=== PATIENT | male | born 1945 | race African-American/Black ===

== ENCOUNTER → 2017-06-06 | Outpatient (CLI) | payer MEDICARE, MEDICAID ==
[2017-06-06 16:26] LABS: BASO % 0.7 % (0.0-2.0); EOS # 0.2 (0.0-0.7); EOS % 3.8 % (0-4.0); GRAN # 2.7 (1.4-6.5); GRAN % 64.2 % (42.2-75.2); HEMATOCRIT 40.1 % (42.0-52.0); HEMOGLOBIN 12.8 g/dl (13.5-18.0); LYMPH % 23.6 % (20.0-51.0); MEAN CELL VOLUME 95 fl (80.0-100.0); MEAN CORPUSCULAR HEMOGLOBIN 30 pg (27.0-31.0); MEAN CORPUSCULAR HGB CONC 32 g/dl (33.0-37.0); MEAN PLATELET VOLUME 10.7 fl (7.4-10.4); MONO # 0.3 (0.1-0.6); MONO % 7.5 % (1.7-9.3); PLATELET COUNT 225 K/mm3 (130-400); RED BLOOD COUNT 4.24 M/mm3 (4.20-5.60); REDCELL DISTRIBUTION WIDTH-CV 14.1 % (11.5-14.5)
[2017-06-06 16:41] LABS: ALBUMIN 4.2 gm/dL (3.5-5.0); BILIRUBIN,TOTAL 0.7 mg/dL (0.0-1.0); CALCIUM 9.3 mg/dL (8.4-10.2); CHOLESTEROL RISK RATIO 3.1; CREATININE, serum 1.38 mg/dL (0.66-1.25); POTASSIUM 4.4 mmol/L (3.4-5.0); TOTAL PROTEIN 7.7 gm/dL (6.4-8.2)
[2017-06-06 16:47] LABS: HIV-1p24 Antigen Non-Reactive
[2017-06-06 16:48] LABS: HIV 1/2 Antibodies Non-Reactive
[2017-06-06 17:15] LABS: PSA-TOTAL 0.69 ng/mL (0-4)
[2017-06-06 17:17] LABS: TSH w REFLEX 0.653 uIU/mL (0.465-4.680)
[2017-06-07 03:36] LABS: RPR (VDRL) Non-reactive (())
== END ==
LOC: COL.LAB 12:52
PROVIDERS: Family Medicine
DX: Z11.3 Encounter for screening for infections with a predominantly sexual mode of transmission (principal); Z12.5 Encounter for screening for malignant neoplasm of prostate; Z12.6 Encounter for screening for malignant neoplasm of bladder; R63.4 Abnormal weight loss; I10 Essential (primary) hypertension
CPT/HCPCS: G0103

== ENCOUNTER → 2017-07-07 | Outpatient (CLI) | payer MEDICARE, MEDICAID | LOC: COL.LAB 10:52 | DX: Z01.89 Encounter for other specified special examinations (principal) ==

== ENCOUNTER → 2017-07-21 | Outpatient (CLI) | payer MEDICARE, MEDICAID | LOC: COL.LAB 10:07 | DX: Z20.5 Contact with and (suspected) exposure to viral hepatitis (principal) ==

== ENCOUNTER → 2018-06-24 | Outpatient (CLI) | payer MEDICARE, MEDICAID ==
[2018-06-24 17:08] LABS: BASO % 0.7 % (0.0-2.0); EOS # 0.3 (0.0-0.7); EOS % 5.9 % (0-4.0); GRAN # 2.8 (1.4-6.5); GRAN % 61.9 % (42.2-75.2); HEMOGLOBIN 12.8 g/dl (13.5-18.0); LYMPH % 22.9 % (20.0-51.0); MEAN CELL VOLUME 93 fl (80.0-100.0); MEAN CORPUSCULAR HEMOGLOBIN 30 pg (27.0-31.0); MEAN CORPUSCULAR HGB CONC 32 g/dl (33.0-37.0); MONO # 0.4 (0.1-0.6); MONO % 8.4 % (1.7-9.3); PLATELET COUNT 225 K/mm3 (130-400); REDCELL DISTRIBUTION WIDTH-CV 14.2 % (11.5-14.5)
[2018-06-24 17:16] LABS: ALBUMIN 4.1 gm/dL (3.5-5.0); BILIRUBIN,TOTAL 0.4 mg/dL (0.0-1.0); CALCIUM 9.2 mg/dL (8.4-10.2); CHOLESTEROL RISK RATIO 3.6; CREATININE, serum 1.39 mg/dL (0.66-1.25); POTASSIUM 4.4 mmol/L (3.4-5.0)
== END ==
LOC: ZCOL.LAB 16:43
PROVIDERS: Family Medicine
DX: Z12.5 Encounter for screening for malignant neoplasm of prostate (principal); I10 Essential (primary) hypertension

== ENCOUNTER 2018-09-29 16:21 | Inpatient (IN) | payer MEDICARE, MEDICAID ==
[2018-09-29] VITALS (202 sets, daily range): BP systolic 101–176; BP diastolic 86–98; PULSE 72–87; TEMP 97.7; O2SAT 88–100
[~2018-09-29] VITALS: Ht 185.4 cm; Wt 65.1 kg
[2018-09-29] MEDS ORDERED: LIPITOR 40MG TA40 MG PO (16:52)
[2018-09-29] MEDS ORDERED: HCTZ12.5TAB PO (16:53)
[2018-09-29 18:38] LABS: BASO % 0.2 % (0.0-2.0); EOS # 0.2 (0.0-0.7); EOS % 3.5 % (0-4.0); GRAN # 3.2 (1.4-6.5); GRAN % 69.9 % (42.2-75.2); HEMOGLOBIN 11.4 g/dl (13.5-18.0); LYMPH # 0.8 (1.2-3.4); LYMPH % 18.2 % (20.0-51.0); MEAN CELL VOLUME 90 fl (80.0-100.0); MEAN CORPUSCULAR HEMOGLOBIN 30 pg (27.0-31.0); MEAN CORPUSCULAR HGB CONC 33 g/dl (33.0-37.0); MEAN PLATELET VOLUME 10.5 fl (7.4-10.4); MONO # 0.4 (0.1-0.6); PLATELET COUNT 219 K/mm3 (130-400); RED BLOOD COUNT 3.87 M/mm3 (4.20-5.60); REDCELL DISTRIBUTION WIDTH-CV 14.8 % (11.5-14.5)
[2018-09-29 18:38] LABS: COLLECTION METHOD CLEAN CATCH
[2018-09-29 18:39] LABS: HEMATOCRIT 34.8 % (42.0-52.0)
[2018-09-29 18:43] LABS: MUCOUS Present /lpf; PH 6 (5-8); SQUAMOUS EPITHELIAL 0-2 /hpf; URINE APPEARANCE Clear; URINE BACTERIA None Seen /hpf; URINE BILIRUBIN Negative (NEGATIVE); URINE BLOOD 1+ (NEGATIVE); URINE COLOR Yellow; URINE GLUCOSE Negative (NEGATIVE); URINE KETONE Negative (NEGATIVE); URINE LEUKOCYTE ESTERASE Negative (NEGATIVE); URINE NITRATE Negative (NEGATIVE); URINE PROTEIN(semi-quant) Negative (NEGATIVE); URINE UROBILINOGEN Negative (NEGATIVE)
[2018-09-29 18:52] LABS: ALANINE AMINOTRANSFERASE < 6 U/L (21-72); ALBUMIN 3.7 gm/dL (3.5-5.0); ALKALINE PHOSPHATASE 110 U/L (50-136); ANION GAP 8 mmol/L (7-16); AST,SGOT 22 U/L (15-37); BILIRUBIN,TOTAL 0.5 mg/dL (0.0-1.0); BLOOD UREA NITROGEN 25 mg/dL (9-20); CALCIUM 9.1 mg/dL (8.4-10.2); CARBON DIOXIDE 28 mmol/L (22-30); CHLORIDE 101 mmol/L (98-107); CREATININE, serum 1.49 (0.66-1.25); GLUCOSE 103 mg/dL (74-106); POTASSIUM 3.8 mmol/L (3.4-5.0); SODIUM 137 mmol/L (137-145); TOTAL PROTEIN 7.4 gm/dL (6.4-8.2)
[2018-09-29 18:56] LABS: C-REACTIVE PROTEIN < 0.5 mg/dL (0.0-0.9)
[2018-09-29 19:00] LABS: TROPONIN-I 0.014 ng/mL (0.000-0.035)
--- NOTE | 2018-09-29 20:23 | NUR ---
Pt report received by Germain from ED.
--- NOTE | 2018-09-29 20:30 | NUR ---
Pt arrived to ICU04 X1 staff assist via stretcher. Pt reported upon sitting up, feeling lightheaded/ dizzy. Pt was encouraged to rest until feeling improved, shortly following encouragement pt transfered with stand by assist X2 staff members to new pt bed. Pt currently has on all personal clothing. VSS obtained with a hospital gown. supervisor pressing department obtained a sandwich box for pt due to increased hunger reported by pt. Pt spouse at bedside during this time.
[2018-09-30] VITALS (1374 sets, daily range): BP systolic 120–148; BP diastolic 61–91; PULSE 75–87; TEMP 97.8–99.3; O2SAT 79–100
[2018-09-30 00:06] LABS: TRICYCLIC ANTIDEPRESS URINE NEGATIVE
[2018-09-30 05:14] LABS: BASO % 0.4 % (0.0-2.0); EOS # 0.2 (0.0-0.7); EOS % 4.4 % (0-4.0); GRAN # 3.1 (1.4-6.5); GRAN % 67.3 % (42.2-75.2); HEMATOCRIT 37.9 % (42.0-52.0); HEMOGLOBIN 12.2 g/dl (13.5-18.0); LYMPH % 20.7 % (20.0-51.0); MEAN CELL VOLUME 91 fl (80.0-100.0); MEAN CORPUSCULAR HEMOGLOBIN 29 pg (27.0-31.0); MEAN CORPUSCULAR HGB CONC 32 g/dl (33.0-37.0); MEAN PLATELET VOLUME 9.9 fl (7.4-10.4); MONO # 0.3 (0.1-0.6); PLATELET COUNT 199 K/mm3 (130-400); RED BLOOD COUNT 4.15 M/mm3 (4.20-5.60); REDCELL DISTRIBUTION WIDTH-CV 14.7 % (11.5-14.5)
[2018-09-30 05:25] LABS: CALCIUM 9.1 mg/dL (8.4-10.2); CREATININE, serum 1.5 (0.66-1.25); POTASSIUM 4.3 mmol/L (3.4-5.0)
--- NOTE | 2018-09-30 07:20 | NUR ---
Bedside report provided to Dolores Kaplan RN. Pt resting in bed on cell phone upon entering pts room. Questions were answered as presented and instructions reviewed on ordering breakfast.
--- NOTE | 2018-09-30 07:30 | NUR ---
bedside report received from JO Barrios.
--- NOTE | 2018-09-30 08:15 | NUR ---
Assessment completed. Pt resting in bed, easily arousable. Remains on cardene gtt for SBP less than 140. Pt has no complaints at this time. Discussed plan of care r/t cardene gtt and echo for today. Pt verbalized understanding. Pt ordering breakfast at this time. Call light in reach.
--- NOTE | 2018-09-30 08:50 | NUR ---
Echo at bedside.
--- NOTE | 2018-09-30 09:45 | NUR ---
Occupational therapy at bedside.
--- NOTE | 2018-09-30 10:26 | NUR ---
SW met with the patient to discuss discharge plan. The patient lives in [place] with his , Antony. He reports independence with ADLs and does not use any DME. The patient's PCP is Dr. Óscar Lux and he receives his medications at [facility]. He reports no difficulties obtaining his meds. The patient does not have advanced directives, but he states he believes that he does have them completed. The patient plans to return home with his upon discharge. No identified needs at this time, but SW to continue to follow.
--- NOTE | 2018-09-30 11:07 | NUR ---
SBP 120s, decrease cardene gtt per titration orders.
--- NOTE | 2018-09-30 12:20 | NUR ---
Pt watching tv in bed. Remains on cardene gtt. No complaints at this time. VSS.
--- NOTE | 2018-09-30 15:46 | NUR ---
Titrating cardene gtt for SBP less than [address] Ge's verbal order.
--- NOTE | 2018-09-30 16:30 | NUR ---
Pt's family at bedside. updated on pt status r/t cardene gtt and BP oral medications. Pt and Pt's family verbalized understanding. Pt remains on cardene gtt.
--- NOTE | 2018-09-30 18:10 | NUR ---
Kimberlee gtt off at this time. SBP remains less than 160. Dinner ordered for pt. Pt watching tv. Call light in reach.
--- NOTE | 2018-09-30 19:30 | NUR ---
bedside report given to JO Barrios.
--- NOTE | 2018-09-30 20:40 | NUR ---
Pt assessment complete. Pt resting in bed. SCD's on although pt requested to a little break. Notified pt of reapplication through out the night and reason for SCD's. Pt has a Nicoderm pts on left lateral shoulder that is intact. Pt requested a prescription because "I am tired of smoking." Options briefly discussed at this time and pt notified that desire to quit smoking will be communicated to physicians.
[2018-10-01] VITALS (765 sets, daily range): BP systolic 130–159; BP diastolic 78–92; PULSE 68–75; TEMP 97.8–98.8; O2SAT 49–100
[2018-10-01 05:38] LABS: BASO % 0.8 % (0.0-2.0); EOS # 0.2 (0.0-0.7); EOS % 4.1 % (0-4.0); GRAN # 2.4 (1.4-6.5); GRAN % 61.7 % (42.2-75.2); HEMATOCRIT 38.1 % (42.0-52.0); HEMOGLOBIN 12.4 g/dl (13.5-18.0); LYMPH % 25.1 % (20.0-51.0); MEAN CELL VOLUME 92 fl (80.0-100.0); MEAN CORPUSCULAR HEMOGLOBIN 30 pg (27.0-31.0); MEAN CORPUSCULAR HGB CONC 33 g/dl (33.0-37.0); MEAN PLATELET VOLUME 9.9 fl (7.4-10.4); MONO # 0.3 (0.1-0.6); PLATELET COUNT 208 K/mm3 (130-400); RED BLOOD COUNT 4.15 M/mm3 (4.20-5.60); REDCELL DISTRIBUTION WIDTH-CV 14.7 % (11.5-14.5)
[2018-10-01 05:43] LABS: CALCIUM 9.1 mg/dL (8.4-10.2); CREATININE, serum 1.34 (0.66-1.25); POTASSIUM 5.1 mmol/L (3.4-5.0)
--- NOTE | 2018-10-01 07:15 | NUR ---
Bedside shift report received from JO Barrios. Patient is sleeping, but easily aroused. Patient has no complaints or concerns at this time. Full assessment completed and documented. Call light placed within reach. Bed in lowest position. Side rails up x2. Non-slip socks present on both feet.
--- NOTE | 2018-10-01 07:30 | NUR ---
Bedside report provided to Erin OSORIO. Pt resting in bed at this time on cell phone.
[2018-10-01] MEDS ORDERED: TOPROL XL 50MG50 MG PO (12:21)
[2018-10-01] MEDS ORDERED: FLOMAX 0.40.4 MG/CAP PO (12:21)
[2018-10-01] MEDS ORDERED: NORVASC 10MG10 MG PO (12:22)
--- NOTE | 2018-10-01 14:30 | NUR ---
Discharge packet completed, printed, and given to patient. Patient states he understands all discharge instructions, medications, and follow up appointment times. Patient is accompanied by his . Patient is discharged from hospital and escorted out via wheelchair by TIRE SPECIALIST. Patient successfully transferred to private car with no complications.
== END 2018-10-01 14:30 | disposition home or self-care (01) | DRG 305 ==
LOC: COL.ER 16:21 → ICU 19:23 → COL.ER 19:23 → ICU 09-30 15:44
PROVIDERS: Emergency Medicine; Nurse Practitioner; Physician Assistant; ADMIT Family Medicine
DX: I16.0 Hypertensive urgency (principal); N17.9 Acute kidney failure, unspecified; E78.5 Hyperlipidemia, unspecified; F17.200 Nicotine dependence, unspecified, uncomplicated; N40.1 Benign prostatic hyperplasia with lower urinary tract symptoms; R39.12 Poor urinary stream; I10 Essential (primary) hypertension
CPT/HCPCS: 99223-AI; 99239; G0378; J7030; J7050

== ENCOUNTER → 2018-10-16 | Outpatient (CLI) | payer MEDICARE, MEDICAID ==
[~2018-10-16] MED LIST: FLOMAX 0.40.4 MG/CAP PO; HCTZ12.5TAB PO; LIPITOR 40MG TA40 MG PO; NORVASC 10MG10 MG PO; TOPROL XL 50MG50 MG PO
[2018-10-16 18:16] LABS: CALCIUM 9.7 mg/dL (8.4-10.2); CREATININE, serum 1.51 (0.66-1.25); POTASSIUM 4.6 mmol/L (3.4-5.0)
== END ==
LOC: ZCOL.LAB 17:11
PROVIDERS: Family Medicine
DX: N17.9 Acute kidney failure, unspecified (principal)

== ENCOUNTER 2019-06-20 19:07 | Inpatient (IN) | payer MEDICARE, MEDICAID ==
[~2019-06-20] VITALS: Ht 185.4 cm; Wt 66.2 kg
[2019-06-20 20:05] LABS: HEMATOCRIT 46.7 % (42.0-52.0); HEMOGLOBIN 14.9 g/dl (13.5-18.0); MEAN CELL VOLUME 90 fl (80.0-100.0); MEAN CORPUSCULAR HEMOGLOBIN 29 pg (27.0-31.0); MEAN CORPUSCULAR HGB CONC 32 g/dl (33.0-37.0); MEAN PLATELET VOLUME 10.1 fl (7.4-10.4); PLATELET COUNT 232 K/mm3 (130-400); RED BLOOD COUNT 5.18 M/mm3 (4.20-5.60)
[2019-06-20 20:13] LABS: ALANINE AMINOTRANSFERASE 25 U/L (21-72); ALBUMIN 4.5 gm/dL (3.5-5.0); ALKALINE PHOSPHATASE 127 U/L (50-136); ANION GAP 9 mmol/L (7-16); AST,SGOT 43 U/L (15-37); BILIRUBIN,TOTAL 0.8 mg/dL (0.0-1.0); BLOOD UREA NITROGEN 31 mg/dL (9-20); CALCIUM 9.4 mg/dL (8.4-10.2); CARBON DIOXIDE 31 mmol/L (22-30); CHLORIDE 100 mmol/L (98-107); CREATININE, serum 1.44 (0.66-1.25); GLUCOSE 109 mg/dL (74-106); POTASSIUM 3.9 mmol/L (3.4-5.0); SODIUM 140 mmol/L (137-145); TOTAL PROTEIN 8.9 gm/dL (6.4-8.2)
[2019-06-20 20:14] LABS: C-REACTIVE PROTEIN < 0.5 mg/dL (0.0-0.9)
[2019-06-20 20:21] LABS: TROPONIN-I 0.025 ng/mL (0.000-0.035)
[2019-06-20 20:22] LABS: PROTHROMBIN TIME 12.1 SECONDS (9.7-12.8)
[2019-06-20 21:24] LABS: EOSINOPHIL 4 % (0-4); LYMPHOCYTE 36 % (20.0-51.0); METAMYELOCYTE 1 % (0-0); NEUTROPHILS 53 % (42.0-75.2); PLATELET ESTIMATE NORMAL (NORMAL)
[2019-06-20 21:25] LABS: HYPOCHROMIA 2+
[2019-06-20] MEDS ORDERED: TAMIFLU 75MG75 MG PO ×2 (21:27→21:32)
[2019-06-20] MEDS ORDERED: ZOFRAN 4MG T4 MG/TAB PO (21:32)
[2019-06-20 22:46] LABS: COLLECTION METHOD CLEAN CATCH
[2019-06-20 22:59] LABS: PH 6 (5-8); SQUAMOUS EPITHELIAL 0-2 /hpf; URINE APPEARANCE Clear; URINE BACTERIA None Seen /hpf; URINE BILIRUBIN Negative (NEGATIVE); URINE BLOOD 1+ (NEGATIVE); URINE COLOR Yellow; URINE GLUCOSE Negative (NEGATIVE); URINE KETONE Negative (NEGATIVE); URINE LEUKOCYTE ESTERASE Negative (NEGATIVE); URINE NITRATE Negative (NEGATIVE); URINE PROTEIN(semi-quant) 1+ (NEGATIVE); URINE UROBILINOGEN >=4.0 mg/dL (NEGATIVE)
[2019-06-21] VITALS (7 sets, daily range): BP systolic 130–173; BP diastolic 68–90; PULSE 64–82; TEMP 98.2–99.4
--- NOTE | 2019-06-21 06:31 | NUR ---
Patient has been resting comfortably since arriving from the ED. He stated after his nausea resolved he has been feeling fine without issues. No complaints of pain or nausea. No other changes at this time. Call light within reach.
[2019-06-21 08:32] LABS: HEMATOCRIT 39.1 % (42.0-52.0); MEAN CELL VOLUME 90 fl (80.0-100.0); MEAN CORPUSCULAR HEMOGLOBIN 29 pg (27.0-31.0); MEAN CORPUSCULAR HGB CONC 32 g/dl (33.0-37.0); MEAN PLATELET VOLUME 10.5 fl (7.4-10.4); PLATELET COUNT 196 K/mm3 (130-400); RED BLOOD COUNT 4.36 M/mm3 (4.20-5.60)
[2019-06-21 08:36] LABS: HEMOGLOBIN 12.5 g/dl (13.5-18.0)
[2019-06-21 08:45] LABS: CALCIUM 8.2 mg/dL (8.4-10.2); CREATININE, serum 1.28 (0.66-1.25); POTASSIUM 4.2 mmol/L (3.4-5.0)
--- NOTE | 2019-06-21 08:54 | NUR ---
Lying in bed with eyes open. Says that he is feeling better than when he came in. Denies shortness of breath or pain. Patient is alert but confused on month, day, year. Patient denies needs at this time.
[2019-06-21 09:05] LABS: BAND 2 % (0-10); EOSINOPHIL 1 % (0-4); LYMPHOCYTE 28 % (20.0-51.0)
[2019-06-21 09:06] LABS: NEUTROPHILS 58 % (42.0-75.2)
--- NOTE | 2019-06-21 09:34 | NUR ---
SW met with the patient to discuss discharge plan. The patient lives in [place] with his , Antony (ph#[phone]). He reports independence with ADLs and does not have any DME. The patient's PCP is Dr. Teena Coy and he receives his medications by delivery from [facility]. He reports no difficulties obtaining his meds. The patient does not have advanced directives in EMR, but he states that he does have them completed and that his is his DPOA-HC. The patient plans to return home with his upon discharge. No additional needs at this time.
--- NOTE | 2019-06-21 10:05 | NUR ---
Reviewed consent for TURBT with the patient. Questions answered. Patient signs consent. Placed on chart.
--- NOTE | 2019-06-21 10:51 | NUR ---
Lying in bed with eyes open watching TV. Patient declines bath/shower at this time as he wants to wait until his comes later with a change of clothes. Provided tooth brush and tooth paste to the patient. Will let us know when he is ready to get up.
--- NOTE | 2019-06-21 17:05 | NUR ---
Reviewed consent for EGD. Questions answered. Patient signs consent. Family in room with the patient.
--- NOTE | 2019-06-21 19:00 | NUR ---
Received report from Romina. Seen patient awake, sitting on bed about to take his dinner. Informed patient he cannot eat and drink by midnight. Denies any pain. With ongoing IVF Ns at 125ml/hr at right upper arm.
[2019-06-22] VITALS (12 sets, daily range): BP systolic 120–195; BP diastolic 50–101; PULSE 65–89; TEMP 98.2–99.9
--- NOTE | 2019-06-22 06:25 | NUR ---
Patient had an uneventful night. He denies any pain. Patient has been using urinal. Will endorse to day shift nurse.
[2019-06-22 06:38] LABS: HEMOGLOBIN 11.8 g/dl (13.5-18.0); MEAN CELL VOLUME 88 fl (80.0-100.0); MEAN CORPUSCULAR HEMOGLOBIN 28 pg (27.0-31.0); MEAN CORPUSCULAR HGB CONC 32 g/dl (33.0-37.0); MEAN PLATELET VOLUME 10.4 fl (7.4-10.4); PLATELET COUNT 185 K/mm3 (130-400); RED BLOOD COUNT 4.18 M/mm3 (4.20-5.60); REDCELL DISTRIBUTION WIDTH-CV 13.9 % (11.5-14.5)
[2019-06-22 06:43] LABS: HEMATOCRIT 36.9 % (42.0-52.0)
[2019-06-22 06:53] LABS: CALCIUM 8.1 mg/dL (8.4-10.2); CREATININE, serum 1.23 (0.66-1.25); POTASSIUM 3.9 mmol/L (3.4-5.0)
[2019-06-22 08:02] LABS: EOSINOPHIL 3 % (0-4); LYMPHOCYTE 22 % (20.0-51.0); NEUTROPHILS 63 % (42.0-75.2); PLATELET ESTIMATE NORMAL (NORMAL)
[2019-06-22 08:25] LABS: PATHOLOGY DIFF REVIEW OK
--- NOTE | 2019-06-22 08:45 | NUR ---
Assessment complete. Patient lying in bed at this time. IV site CD&I, flushed well. NS running@125 ml/hr at this time. Morning medications given. Patient was aware of NPO status as of last night per power and recovery shift engineer, NPO order was not put in until this morning. Because of this pt was delivered a food tray and ate about 1/4 of his breakfast. Radha op and anesthesia are both aware this at this time. No complaints of pain or discomfort at this time. Pt states he is going to sleep until his procedure now. No further needs were expressed at this time. Call light is within reach.
--- NOTE | 2019-06-22 16:40 | NUR ---
Pt own to TURBT procedure at this time.
--- NOTE | 2019-06-22 17:46 | NUR ---
Patient had an uneventful day prior to surgery. He rested and watched tv until he was picked up for procedure. He did shower this am. He has not complained of pain or discomfort all day. Awaiting his return from surgery at this time. is present in room, waiting for him as well.
--- NOTE | 2019-06-22 19:15 | NUR ---
Received report from Adri. Seen patient awake, eating his dinner. Patient's blood pressure is high, systolic ranges from 170-190. Adri informed Rachel and hydralazine was ordered. Patient is alert and oriented. He denies any pain. Instructed not to eat and drink anything by midnight. Will continue to monitor.
--- NOTE | 2019-06-22 19:38 | NUR ---
At shift change post procedural vitals showing BP 198/106. Contacted Rachel in reference to PRN Apresoline as it was a PACU order only. She prescribed a new PRN order for Apresoline, told me to administer and recheck and update her in 10 mins. Awaiting ten minutes at this time to update. Pt is asymptomatic.
[2019-06-23] VITALS (11 sets, daily range): BP systolic 119–148; BP diastolic 62–86; PULSE 43–103; TEMP 97.5–98.3
--- NOTE | 2019-06-23 01:30 | NUR ---
Patient states he can't sleep and asked for some sleeping pills. Informed Rachel via phone call.
[2019-06-23 06:09] LABS: BASO % 0.2 % (0.0-2.0); EOS % 0.9 % (0-4.0); GRAN % 67.5 % (42.2-75.2); HEMATOCRIT 37.3 % (42.0-52.0); HEMOGLOBIN 11.9 g/dl (13.5-18.0); LYMPH % 22.5 % (20.0-51.0); MEAN CELL VOLUME 88 fl (80.0-100.0); MEAN CORPUSCULAR HEMOGLOBIN 28 pg (27.0-31.0); MEAN CORPUSCULAR HGB CONC 32 g/dl (33.0-37.0); MEAN PLATELET VOLUME 10.5 fl (7.4-10.4); MONO # 0.4 (0.1-0.6); MONO % 8.5 % (1.7-9.3); PLATELET COUNT 209 K/mm3 (130-400); RED BLOOD COUNT 4.24 M/mm3 (4.20-5.60)
[2019-06-23 06:23] LABS: CALCIUM 8.5 mg/dL (8.4-10.2); CREATININE, serum 1.49 (0.66-1.25); POTASSIUM 4.5 mmol/L (3.4-5.0)
--- NOTE | 2019-06-23 07:21 | NUR ---
Patient states he was able to sleep after giving the Melatonin. Secured consent for UGI endoscopy. Patient states it was explained to him and understands the procedure. He doesn't consent with blood products.
--- NOTE | 2019-06-23 08:47 | NUR ---
Assessment complete. Patient was awake lying in bed. AxO. IV site CD&I, flushed well. Pt is aware of his POC. No complaints of pain or discomfort. Voids using urinal. Independently ambulatory. PPt is aware of NPO status until procedure this afternoon. No further needs were expressed at this time. Call light is in reach.
--- NOTE | 2019-06-23 12:08 | NUR ---
Started NS at 30 ml/hr per orders for fluids 1 hr prior to EGD.
--- NOTE | 2019-06-23 12:30 | NUR ---
Pt down to procedure at this time.
--- NOTE | 2019-06-23 13:53 | NUR ---
Pt back from procedure at this time. VS stable. Pt ate lunch immediately. No drowniness. No pain. Pt sitting at side of bedding eating. Will continue to monitor vitals per protocol.
[2019-06-23] MEDS ORDERED: PROTONIX 40MG T40 MG PO (16:06)
[2019-06-23] MEDS ORDERED: TAMIFLU30 MG PO (16:06)
--- NOTE | 2019-06-23 16:26 | NUR ---
The patient is to discharge back home with his today, 06/23. SW met with the patient and his to present and explain the IM form. The patient verbalized understanding, signed, and he was provided a copy. No additional needs at this time.
--- NOTE | 2019-06-23 18:27 | NUR ---
Pt escorted off the floor at this time discharge instructions reviewed. Questions answered.
== END 2019-06-23 18:28 | disposition home or self-care (01) | DRG 194 ==
LOC: COL.ER 19:07 → MEDICAL 23:05
PROVIDERS: Emergency Medicine; Hospitalist; Internal Medicine Gastroenterology; Physician Assistant; ADMIT Internal Medicine
PROC: BT1D1ZZ Fluoroscopy of Right Kidney, Ureter and Bladder using Low Osmolar Contrast (ICD-10-PCS; 2019-06-22)
PROC: 0DB68ZX Excision of Stomach, Via Natural or Artificial Opening Endoscopic, Diagnostic (ICD-10-PCS; 2019-06-23)
PROC: 0DB98ZX Excision of Duodenum, Via Natural or Artificial Opening Endoscopic, Diagnostic (ICD-10-PCS; principal; 2019-06-23 13:00)
DX: J10.1 Influenza due to other identified influenza virus with other respiratory manifestations (principal); N13.30 Unspecified hydronephrosis; K25.3 Acute gastric ulcer without hemorrhage or perforation; R65.10 Systemic inflammatory response syndrome (SIRS) of non-infectious origin without acute organ dysfunction; N17.9 Acute kidney failure, unspecified; R11.0 Nausea; K44.9 Diaphragmatic hernia without obstruction or gangrene; K29.50 Unspecified chronic gastritis without bleeding; K31.819 Angiodysplasia of stomach and duodenum without bleeding; D13.5 Benign neoplasm of extrahepatic bile ducts; F17.210 Nicotine dependence, cigarettes, uncomplicated; I12.9 Hypertensive chronic kidney disease with stage 1 through stage 4 chronic kidney disease, or unspecified chronic kidney disease; E78.5 Hyperlipidemia, unspecified; R07.81 Pleurodynia; R91.1 Solitary pulmonary nodule; N18.3 Chronic kidney disease, stage 3 (moderate)
CPT/HCPCS: 99222-AI; 99231-AI; 99239; C1769; C9113; J0360; J0690; J2250; J2405; J2704; J3010; J7030; Q9967

== ENCOUNTER 2019-06-28 13:03 | Inpatient (IN) | payer MEDICARE, MEDICAID ==
[~2019-06-28] VITALS: Ht 185.4 cm; Wt 68.3 kg
[~2019-06-28 13:03] MED LIST changes: +PROTONIX 40MG T40 MG PO; +TAMIFLU 75MG75 MG PO; +TAMIFLU30 MG PO; +ZOFRAN 4MG T4 MG/TAB PO
[2019-07-06] VITALS (9 sets, daily range): BP systolic 143–164; BP diastolic 69–79; PULSE 63–84; TEMP 97.5–98.4
--- NOTE | 2019-07-06 08:45 | NUR ---
The patient ambulated back to [place] 3 independently using a steady gait and appeared to tolerate the activity well. Vital signs obtained. Consent signed. 20G IV started in right forearm with one stick, LR infusing without difficulty. Blood obtained from IV start for re-type as ordered. Heart Reg. Lungs clear. Bowel sounds audible. Call light is within reach. brought back to be at his bedside. The patient denies any further needs at this time. Will continue to monitor the patient.
[2019-07-06] MEDS ORDERED: TOPROL XL 50MG50 MG PO (09:00)
[2019-07-06] MEDS ORDERED: ZOFRAN 4MG T4 MG/TAB PO (09:05)
[2019-07-06] MEDS ORDERED: NORVASC 10MG10 MG PO (09:06)
[2019-07-06] MEDS ORDERED: FLOMAX 0.40.4 MG/CAP PO (09:06)
[2019-07-06] MEDS ORDERED: PROTONIX 40MG T40 MG PO (09:07)
[2019-07-06] MEDS ORDERED: TESSALON P100 MG/CAP PO (09:07)
--- NOTE | 2019-07-06 10:00 | NUR ---
The patient was taken over to the recovery room to receive a nerve block by anesthesia prior to surgery. The patient's is going to leave at this time and left her phone number for updates. The patient's belongings will be taken over to the recovery room and transferred with the patient up to the 3rd floor after surgery.
--- NOTE | 2019-07-06 16:45 | NUR ---
Patient got back to the floor from surgery at 1625. Patient is alert and oriented. Denies nausea. Rating pain at 7 on a 0-10 scale. Discussed pain medications ordered and how often he can have them. Patients is at bedside. Oriented patient to room. No other changes at this time. Call light within reach.
--- NOTE | 2019-07-06 18:30 | NUR ---
Patient has been resting off and on. Denies nausea. Continues to have pain. He stated it getting better but the right side is very sore. His is going home for the night. No other changes at this time. Call light within reach.
--- NOTE | 2019-07-06 20:45 | NUR ---
Pt. laying in bed at this time. Pt. is A&OX3, assessment complete. IV to rt. forearm patent, IV fluids infusing per orders. Pt. reports pain at a 7 on pain scale at this time. Giving meds per orders. Five abd. lap sites noted, edges well approximated. SHAHNAZ drain to abd. gauze CDI, bloody drainage noted. Pt. denies further needs at this time. Call light within reach.
[2019-07-07 00:23] VITALS: BP 162/112; PULSE 84; TEMP 98
[2019-07-07 04:48] VITALS: BP 167/81; PULSE 79; TEMP 97.7
[2019-07-07 07:35] LABS: BASO % 0.1 % (0.0-2.0); GRAN # 11.1 (1.4-6.5); GRAN % 88.1 % (42.2-75.2); HEMOGLOBIN 11.1 g/dl (13.5-18.0); LYMPH # 0.7 (1.2-3.4); LYMPH % 5.6 % (20.0-51.0); MEAN CELL VOLUME 91 fl (80.0-100.0); MEAN CORPUSCULAR HEMOGLOBIN 28 pg (27.0-31.0); MEAN CORPUSCULAR HGB CONC 31 g/dl (33.0-37.0); MEAN PLATELET VOLUME 10.4 fl (7.4-10.4); MONO # 0.7 (0.1-0.6); MONO % 5.5 % (1.7-9.3); PLATELET COUNT 277 K/mm3 (130-400); RED BLOOD COUNT 3.93 M/mm3 (4.20-5.60); REDCELL DISTRIBUTION WIDTH-CV 15.1 % (11.5-14.5)
[2019-07-07 07:38] LABS: HEMATOCRIT 35.7 % (42.0-52.0)
[2019-07-07 09:27] VITALS: BP 167/79; PULSE 79; TEMP 97.7
--- NOTE | 2019-07-07 11:26 | NUR ---
BRENT met with the patient, his son (Daren), and friends to discuss plan. The patient lives in [place] with his , Antony (ph#[phone]). He reports independence with ADLs and does not have any DME. The patient's PCP is Dr. Yvonne Coy and he receives his medications at [facility]. He reports no difficulties obtaining his meds. The patient does not have advanced directives in EMR, but he states that he does have them completed and that his is his DPOA-HC. The patient plans to return home with his upon discharge. No additional needs at this time.
--- NOTE | 2019-07-07 11:35 | NUR ---
Patient resting in bed. rounded. Hill care instructions given. We ambulated the entire third floor and he did very well. Manjit drain to compression. Hill to dd with adequte output. Robotic Edges well approximated, open to air.
[2019-07-07 12:16] VITALS: BP 169/80; PULSE 76; TEMP 98.2
[2019-07-07 17:18] VITALS: BP 170/93; PULSE 70; TEMP 98.3
--- NOTE | 2019-07-07 19:12 | NUR ---
Patient resting in bed. Eras protocol followed. New dressing to Manjit drain site. Manjit drain to compression. Patient robotic site edges well approximated. open to air. He has tolerated general diet without nausea. Extensive wong teaching given to patient & his . I did demonstrate leg bag teaching, they had minimal interest.
--- NOTE | 2019-07-07 21:00 | NUR ---
Pt. laying in bed watching tV at this time. Pt. is A&Ox3, assessment complete. INT to rt. hand patent. Abd. incision CDI. SHAHNAZ noted with minimal serosanguinous drainaged. Pt. reports pain at a 7 on pain scale. Pt. denies further needs, call light within reach.
[2019-07-07 22:16] VITALS: BP 158/80; PULSE 70; TEMP 98.5
[2019-07-08 04:20] VITALS: BP 143/79; PULSE 74; TEMP 97.7
[2019-07-08 07:34] VITALS: BP 167/78; PULSE 67; TEMP 97.3
--- NOTE | 2019-07-08 08:33 | NUR ---
Pt in good spirits. Abdominal sutures CDI. SHAHNAZ site CDI with blood tinged drainage 25 mL.
--- NOTE | 2019-07-08 10:45 | NUR ---
Discharge orders discussed with the patient, instructed to follow up as scheduled, explaing wong cath care/ leg bag teaching, SHAHNAZ drain removed per Urology order, IV removed from right arm, pain med scripts are at the Urology office for him, he is waiting for his to arrive, ras escort out once she arrives
[2019-07-08 11:05] VITALS: BP 154/88; PULSE 75; TEMP 98.2
--- NOTE | 2019-07-08 12:46 | NUR ---
First visit from the business executive. No needs right now.
== END 2019-07-08 11:59 | disposition home or self-care (01) | DRG 657 ==
LOC: INPTSU 07-06 08:06 → SURG 07-06 10:45
PROVIDERS: ADMIT Urology
PROC: 0TB64ZZ Excision of Right Ureter, Percutaneous Endoscopic Approach (ICD-10-PCS; 2019-07-06)
PROC: 0TT04ZZ Resection of Right Kidney, Percutaneous Endoscopic Approach (ICD-10-PCS; principal; 2019-07-06 10:45)
DX: D41.21 Neoplasm of uncertain behavior of right ureter (principal); N13.39 Other hydronephrosis; R93.41 Abnormal radiologic findings on diagnostic imaging of renal pelvis, ureter, or bladder; B19.20 Unspecified viral hepatitis C without hepatic coma; E78.5 Hyperlipidemia, unspecified; I10 Essential (primary) hypertension
CPT/HCPCS: A4314; A9284; J0690; J1100; J1170; J1650; J2250; J2370; J2405; J2704; J2795; J3010; J7120

== ENCOUNTER → 2019-06-30 | Outpatient (CLI) | payer MEDICARE, MEDICAID | LOC: COL.CARD 14:07 | DX: Z01.818 Encounter for other preprocedural examination (principal) ==

== ENCOUNTER → 2019-07-16 | Outpatient (CLI) | payer MEDICARE, MEDICAID ==
[~2019-07-16] MED LIST changes: +TESSALON P100 MG/CAP PO
== END ==
LOC: COL.RAD 09:32
DX: D41.21 Neoplasm of uncertain behavior of right ureter (principal); N13.39 Other hydronephrosis
CPT/HCPCS: Q9967

== ENCOUNTER → 2019-07-28 | Outpatient (CLI) | payer MEDICARE, MEDICAID | LOC: COL.LAB 15:36 | DX: A15.9 Respiratory tuberculosis unspecified (principal) ==

== ENCOUNTER 2019-08-16 09:48 | Day surgery (SDC) | payer MEDICARE, MEDICAID ==
[~2019-08-16] VITALS: Ht 185.4 cm; Wt 71.3 kg
[2019-08-16 10:12] VITALS: BP 161/103; PULSE 82; TEMP 98.1
[2019-08-16] MEDS ORDERED: COLACE 100100 MG/CAP PO (10:12)
[2019-08-16 11:20] VITALS: BP 151/93; PULSE 80; TEMP 98
--- NOTE | 2019-08-16 11:20 | NUR ---
TO BAY 2 PER CART FROM ENDOSCOPY. AMBULATED TO RECLINER AND ONCE IN RECLINER SLEEPING.
[2019-08-16 11:35] VITALS: BP 134/89; PULSE 87
--- NOTE | 2019-08-16 11:35 | NUR ---
AWAKENS EASILY. RECEIVED WATER AND TOOK A FEW SIPS AND FALLS BACK TO SLEEP.
[2019-08-16 11:50] VITALS: BP 139/97; PULSE 84
--- NOTE | 2019-08-16 11:50 | NUR ---
MORE AWAKE AND RECEIVED ICE CREAM PER REQUEST. PATIENT ASKING IF WE HAVE TALKED TO HIS . DR HOLLAND INTO TALK WITH PAISANGEETHA AND THAT SHE TALKED WITH IS . DR HOLLAND STATED SHE WOULD LET HIM KNOW MORE AFTER BX RESULTS ARE BACK.
[2019-08-16 12:05] VITALS: BP 162/105; PULSE 82
--- NOTE | 2019-08-16 12:05 | NUR ---
RECEIVED 2ND ICE CREAM AND 2ND CUP OF WATER
--- NOTE | 2019-08-16 12:20 | NUR ---
ATE 100% AND TOLERATED WELL. RECEIVED DISCHARGE INSTRUCTIONS AND VERBALIZED UNDERSTANDING. DISCONTINUED IV AND INT. CALLED TO SMALLTALK DEVELOPER PATIENT. AFTER GETTING DRESSED PATIENT WALKED TO BATHROOM WITH STAND BY ASSIST.
--- NOTE | 2019-08-16 13:00 | NUR ---
DISCHARGED PER WC BY NURSING STAFF TO PRIVATE CAR IN CARE OF SON AND HIS .
== END 2019-08-16 13:12 | disposition home or self-care (01) ==
LOC: SDCO 09:48
DX: D13.2 Benign neoplasm of duodenum (principal); K29.50 Unspecified chronic gastritis without bleeding; Z87.11 Personal history of peptic ulcer disease; K44.9 Diaphragmatic hernia without obstruction or gangrene; K31.819 Angiodysplasia of stomach and duodenum without bleeding; Z90.5 Acquired absence of kidney; Z90.6 Acquired absence of other parts of urinary tract
CPT/HCPCS: J2704; J7030

== ENCOUNTER → 2020-05-16 | Outpatient (CLI) | payer MEDICARE, MEDICAID ==
[~2020-05-16] MED LIST changes: +COLACE 100100 MG/CAP PO
== END ==
LOC: COL.RAD 12:12
DX: N43.3 Hydrocele, unspecified (principal)

== ENCOUNTER → 2020-10-11 | Outpatient (CLI) | payer MEDICARE, MEDICAID ==
[~2020-10-11] MED LIST changes: +DECADRON6 MG PO; +FERRO-TIME325 MG PO; +HEPARIN SOD5000 U/ML SQ; +MONODOX100 PO; +OXYGEN; +PROAIR HFA0.09 MG/AC IH; +REFRESH 1 ML1 ML OP; +ROBITUSSIN100 MG/5 M PO; +RT Albuterol HFA MDI IH; +SYSTANE GEL EYE10 ML OP; +TYLENOL 325MG325 MG PO; +ZOFRAN ODT4 MG PO
== END ==
LOC: ZCOL.LAB 08:29
DX: Z20.822 Contact with and (suspected) exposure to COVID-19 (principal)

== ENCOUNTER → 2020-10-31 | Outpatient (CLI) | payer MEDICARE, MEDICAID | LOC: ZCOL.LAB 09:05 | DX: Z20.822 Contact with and (suspected) exposure to COVID-19 (principal) ==

== ENCOUNTER 2020-11-16 21:30 | Emergency (ER) | payer MEDICARE, MEDICAID ==
[~2020-11-16] VITALS: Ht 185.4 cm; Wt 68.2 kg
[~2020-11-16 21:30] MED LIST changes: -DECADRON6 MG PO; -FERRO-TIME325 MG PO; -HEPARIN SOD5000 U/ML SQ; -MONODOX100 PO; -OXYGEN; -PROAIR HFA0.09 MG/AC IH; -REFRESH 1 ML1 ML OP; -ROBITUSSIN100 MG/5 M PO; -RT Albuterol HFA MDI IH; -SYSTANE GEL EYE10 ML OP; -TYLENOL 325MG325 MG PO; -ZOFRAN ODT4 MG PO
[2020-11-16 23:40] LABS: HEMOGLOBIN 10.4 g/dl (13.5-18.0); MEAN CELL VOLUME 75 fl (80.0-100.0); MEAN CORPUSCULAR HEMOGLOBIN 22 pg (27.0-31.0); MEAN CORPUSCULAR HGB CONC 30 g/dl (33.0-37.0); MEAN PLATELET VOLUME 10.6 fl (7.4-10.4); PLATELET COUNT 334 K/mm3 (130-400); RED BLOOD COUNT 4.67 M/mm3 (4.20-5.60); REDCELL DISTRIBUTION WIDTH-CV 17.5 % (11.5-14.5)
[2020-11-16 23:44] LABS: HEMATOCRIT 34.9 % (42.0-52.0)
[2020-11-16 23:45] LABS: ALBUMIN 4.8 gm/dL (3.5-5.0); BILIRUBIN,TOTAL 0.8 mg/dL (0.0-1.0); CALCIUM 9.8 mg/dL (8.4-10.2); CREATININE, serum 2.2 (0.66-1.25); POTASSIUM 4.7 mmol/L (3.4-5.0); TOTAL PROTEIN 9.8 gm/dL (6.4-8.2)
[2020-11-16 23:49] LABS: ANISOCYTOSIS 1+; LYMPHOCYTE 6 % (20.0-51.0); NEUTROPHILS 85 % (42.0-75.2); PLATELET ESTIMATE NORMAL (NORMAL)
[2020-11-16 23:50] LABS: HYPOCHROMIA 3+; MICROCYTOSIS 1+
[2020-11-17] MEDS ORDERED: ZOFRAN ODT4 MG PO (03:14)
[2020-11-17 03:27] VITALS: BP 134/80; PULSE 100; TEMP 98.4
[2020-11-18] MEDS ORDERED: REFRESH 1 ML1 ML OP (00:37)
[2020-11-18] MEDS ORDERED: SYSTANE GEL EYE10 ML OP (00:37)
== END 2020-11-17 04:00 | disposition home or self-care (01) ==
LOC: COL.ER 21:30
PROVIDERS: Emergency Medicine Emergency Medical Services
DX: R11.2 Nausea with vomiting, unspecified (principal)
CPT/HCPCS: J2405; J7030

== ENCOUNTER 2020-11-17 22:17 | Inpatient (IN) | payer MEDICARE, MEDICAID ==
[~2020-11-17] VITALS: Ht 190.5 cm; Wt 73.3 kg
[~2020-11-17 22:17] MED LIST changes: +ZOFRAN ODT4 MG PO
[2020-11-17 22:58] LABS: MEAN CELL VOLUME 75 fl (80.0-100.0); MEAN CORPUSCULAR HGB CONC 30 g/dl (33.0-37.0); MEAN PLATELET VOLUME 11.2 fl (7.4-10.4); PLATELET COUNT 363 K/mm3 (130-400); RED BLOOD COUNT 4.44 M/mm3 (4.20-5.60); REDCELL DISTRIBUTION WIDTH-CV 17.4 % (11.5-14.5)
[2020-11-17 23:04] LABS: HEMATOCRIT 33.4 % (42.0-52.0); HEMOGLOBIN 9.9 g/dl (13.5-18.0); MEAN CORPUSCULAR HEMOGLOBIN 22 pg (27.0-31.0)
[2020-11-17 23:09] LABS: ALBUMIN 4.5 gm/dL (3.5-5.0); BILIRUBIN,TOTAL 0.6 mg/dL (0.0-1.0); CALCIUM 9.5 mg/dL (8.4-10.2); CREATININE, serum 1.96 (0.66-1.25); TOTAL PROTEIN 9.4 gm/dL (6.4-8.2)
[2020-11-17 23:13] LABS: INR 1.3 (0.8-3.0); PROTHROMBIN TIME 14.1 SECONDS (9.7-12.8)
[2020-11-17 23:23] LABS: ANISOCYTOSIS 1+; BAND 5 % (0-10); HYPOCHROMIA 3+; LYMPHOCYTE 7 % (20.0-51.0); MICROCYTOSIS 1+; NEUTROPHILS 86 % (42.0-75.2); PLATELET ESTIMATE NORMAL (NORMAL)
[2020-11-18] VITALS (7 sets, daily range): BP systolic 130–167; BP diastolic 67–86; PULSE 56–101; TEMP 98–99.5
[2020-11-18 00:01] LABS: TROPONIN-I 0.036 ng/mL (0.000-0.035)
[2020-11-18] MEDS ORDERED: REFRESH 1 ML1 ML OP (00:37)
[2020-11-18] MEDS ORDERED: SYSTANE GEL EYE10 ML OP (00:37)
[2020-11-18 02:13] LABS: COLLECTION METHOD CLEAN CATCH
[2020-11-18 02:20] LABS: MUCOUS Present /lpf; PH 5 (5-8); SQUAMOUS EPITHELIAL 0-2 /hpf; URINE APPEARANCE Hazy; URINE BACTERIA Rare /hpf; URINE BILIRUBIN Negative (NEGATIVE); URINE BLOOD 2+ (NEGATIVE); URINE COLOR Yellow; URINE GLUCOSE Negative (NEGATIVE); URINE KETONE Trace (NEGATIVE); URINE LEUKOCYTE ESTERASE Negative (NEGATIVE); URINE NITRATE Negative (NEGATIVE); URINE PROTEIN(semi-quant) 2+ (NEGATIVE); URINE RBC None Seen /hpf; URINE UROBILINOGEN Negative (NEGATIVE)
--- NOTE | 2020-11-18 03:13 | NUR ---
pt admit from er per cart to isolation room 303.C/O soa, n/v dark black content and stools that appear dark in color. Has just not felt good all week. Pt kids/family test postive for covid last week and now pt has as well. orders initated. POC discussed w patient. Call light with in reach. See MAR for med and fluid intiated. Blood culture and trop obtained.
--- NOTE | 2020-11-18 05:05 | NUR ---
BLOOD CULTURE AND TROP SENT. PT C/O RT AC SITE BURNING AND PAIN AFTER STARTING ANTIBOTICS. WANTED IT OUT. REMOVED PER PT REQ. SITE APPEARS WELL. NOT INFILTRATED OR REDNESS. ATTEMPT IV TO HAND PER PT REQ, NOT SUCESSFUL CONTACTED HOUSE SUP TO COME START. TELE ON. SCD APPLIED. PT UP TO BR. ORAL CARE SWABS AT BEDSIDE PT IS NPO. CALL LIGHT WI REACH.
--- NOTE | 2020-11-18 05:14 | NUR ---
REPORT TROP OF 0.052 TO LISA BONNER. WILL ORDER ECO FOR THIS AM. PT REPORTING NO CHEST PAIN.
--- NOTE | 2020-11-18 05:38 | NUR ---
CALLED OMARI TO GIVE UPDATE ON PT CARES/STATUS. STATES YOU HAVE TO LET ME COME SEE HIM SHE IS CRYING. CONSOLED AND TRIED TO COMFORT. TOLD HER TO CALL FOR UPDATES AND WE WILL KEEP IN CONTACT W HER.
--- NOTE | 2020-11-18 06:12 | NUR ---
IV START TO LEFT HAND AND RESTART OF ANTIBOTICS AND FLUIDS. DR ZAMORA ALSO NOTIFIED OF CONSULT.
--- NOTE | 2020-11-18 06:12 | NUR ---
DR SUAREZ NOTIFED OF CONSULT, WILL DO TELEHEALTH. MADE SURE HE WAS ON PROTONIX AND CONFIRMED.
[2020-11-18 06:59] LABS: MEAN CELL VOLUME 76 fl (80.0-100.0); MEAN CORPUSCULAR HGB CONC 29 g/dl (33.0-37.0); PLATELET COUNT 281 K/mm3 (130-400); RED BLOOD COUNT 3.85 M/mm3 (4.20-5.60); REDCELL DISTRIBUTION WIDTH-CV 17.4 % (11.5-14.5)
[2020-11-18 07:04] LABS: HEMATOCRIT 29.3 % (42.0-52.0); HEMOGLOBIN 8.5 g/dl (13.5-18.0); MEAN CORPUSCULAR HEMOGLOBIN 22 pg (27.0-31.0)
[2020-11-18 07:10] LABS: CALCIUM 8.8 mg/dL (8.4-10.2); CREATININE, serum 1.83 (0.66-1.25); POTASSIUM 4.2 mmol/L (3.4-5.0)
[2020-11-18 07:14] LABS: ANISOCYTOSIS 1+; BAND 7 % (0-10); HYPOCHROMIA 3+; LYMPHOCYTE 4 % (20.0-51.0); MICROCYTOSIS 1+; NEUTROPHILS 88 % (42.0-75.2); PLATELET ESTIMATE NORMAL (NORMAL)
[2020-11-18 07:31] LABS: TROPONIN-I 6 HR POST INITIAL 0.052 ng/mL (0.000-0.034)
--- NOTE | 2020-11-18 09:30 | NUR ---
Scheduled medications given. Shift assessment preformed. Patient currently requiring 4L of O2 via nasal cannula. Patient denies any N/V/D or pain. Patient afebrile. VSS. Incision located of left hand is clean, dry, edges well approximated. Patient denies any further pain or discomfort at this time. Will continue to monitor. Call light in reach. Fall precautions in place. Troponin of 0.[address] Omalley. Patient denies chest pain.
[2020-11-18 12:51] LABS: RETIC # 0.02 M/mm3 (0.02-0.16); RETIC % 0.4 % (0.5-3.52)
--- NOTE | 2020-11-18 13:08 | NUR ---
Sw spoke with pt via phone to complete intake and the pt informed sw to call his , Antony (ph# [phone]). I spoke with Mrs. Irene and she informed me that the pt is independent on all ADLs and uses no DME. He does a have shower chair and that she would like for him to have a walker. She is currently working with the insurance company to get one for him. He gets exhausted easily walking up the stairs at home. The pt PCP is Maci Cantrell MD. and he gets his medications from [facility] and has no problems obtaining them. The pt does not have DPAO-HC and is not interested in one at this time. The pt informed me that if he has to stay more then 3 days, then to call her so she can submit forms to the insurance company for extras stays. She handles all his decisions and the pt will automatically tell you to contact her. No other needs stated at this time. Sw to await further recommendations and follow up as needed. D/c: Home with .
--- NOTE | 2020-11-18 18:00 | NUR ---
Patient has had an ok day. Patient still requiring 4L of O2 via nasal cannula. Dr. Coleman updated on patient's status. VSS. Scheduled medications given. Patient denies any pain, N/V/D, patient is afebrile. Patient denies any further needs at this time. Will continue to monitor. Call light in reach. Fall precautions in place.
--- NOTE | 2020-11-18 21:37 | NUR ---
pt alert and ox4. Denies chest pain or dizzy. continue to have nausea occ but req ice cream and a box meal. Denies any vomiting or bm today. Denies pain. IV fluids running, pm meds given. POC discussed. Needs met .
[2020-11-19 04:00] VITALS: BP 143/82; PULSE 88; TEMP 98
--- NOTE | 2020-11-19 04:47 | NUR ---
RESTED OFF AND ON THROUGH OUT NIGHT WO INCIDENT. BM X2, BROWN STOOLS NOT TARRY OR BLOODY. NEEDS MET.
--- NOTE | 2020-11-19 08:00 | NUR ---
Assessment complete. Pt requesting to get into bathroom for BM and shower. IV site and hand wound covered with plastic bag and foam tape. Telemetry removed. O2 currently provided at 5 L/min via NC with sats 100%. O2 turned down and eventually off and pt's sats remaining greater than 95% on room air. Pt assisted with standby assist into bathroom and shower supplies provided. Bed linens changed. Call light in reach.
[2020-11-19 08:28] VITALS: BP 177/83; PULSE 83; TEMP 97.9
--- NOTE | 2020-11-19 10:00 | NUR ---
After shower, pt reports shortness of breath from exertion, sats 88% on room air. O2 via NC placed at 1 L/min and sats increase to 91-92%.
[2020-11-19 11:45] VITALS: PULSE 95; TEMP 97.4
--- NOTE | 2020-11-19 12:00 | NUR ---
Pt reports still feeling slightly labored with breathing after this morning's exertion, sats 88% on 1 L/min via NC. O2 increased to 3 L/min to get sats up to 92%. Heart rate and respiratory rate settle to WNL. No further needs reported. Call light in reach.
[2020-11-19 15:49] VITALS: BP 148/82; PULSE 85; TEMP 97.8
--- NOTE | 2020-11-19 19:29 | NUR ---
Report to JO Reeves. Pt was back down to 1 L/min O2 via NC around 1630 after sats 100% on 3 L/min. Otherwise uneventful shift.
[2020-11-19 20:05] VITALS: BP 155/93; PULSE 87; TEMP 97.8
[2020-11-19 23:41] VITALS: BP 153/81; PULSE 81; TEMP 98.6
--- NOTE | 2020-11-20 04:25 | NUR ---
PATIENT IV INFILTRATED NEW ACCESS PLACE TO RIGHT HAND. PATIENT DESATED TO 81 ON 1L NC. RESPIRATIRY NOTIFIED, PLACE ON 8L HF SATING 90% INCREASES TO 9L HF WITH SAT IN THE 92% HOSPITOLIST HA GONZALEZ MADE AWARE, ORDERED BLOOD GASES, HOUSE SUPERVISER MADE AWARE. WILL CONTINUE TO MONITOR.
[2020-11-20 04:48] VITALS: BP 141/86; PULSE 97
[2020-11-20 05:01] LABS: ARTERIAL BLD GAS O2 SATURATION 88.6 % (92-100); ARTERIAL BLOOD GAS BASE EXCESS -5.6 (-2-2); ARTERIAL BLOOD GAS HCO3 17.3 meq/L (22-26); ARTERIAL BLOOD GAS PCO2 25.4 mmHg (35-45); ARTERIAL BLOOD GAS PO2 59.1 mmHg (80-100); ARTERIAL BLOOD GAS pH 7.45 (7.35-7.45)
--- NOTE | 2020-11-20 06:03 | NUR ---
PATIENT HAS AN INCREASE DEMAND OF O2 WENT FROM 9L HF TO AIR-VO 45L @ 55%. HOUSE SUPERVISER AND HOSPITOLIST HA GONZALEZ MADE AWARE, CHEST X-RAY COMPLETED. PATIENT TACHYPNEIC, OCCASIONAL COUGHING. PATIENT HAD MULTIPLE LOOSE TARRY STOOL. WILL CONTINUE TO MONITOR.
[2020-11-20 09:59] VITALS: BP 163/89; PULSE 93; TEMP 98.8
[2020-11-20 11:28] VITALS: BP 157/78; PULSE 87; TEMP 99.1
[2020-11-20 11:46] LABS: MEAN CELL VOLUME 77 fl (80.0-100.0); MEAN CORPUSCULAR HGB CONC 30 g/dl (33.0-37.0); MEAN PLATELET VOLUME 11.1 fl (7.4-10.4); PLATELET COUNT 257 K/mm3 (130-400); RED BLOOD COUNT 3.42 M/mm3 (4.20-5.60); REDCELL DISTRIBUTION WIDTH-CV 17.4 % (11.5-14.5)
[2020-11-20 11:47] LABS: HEMATOCRIT 26.2 % (42.0-52.0); HEMOGLOBIN 7.8 g/dl (13.5-18.0); MEAN CORPUSCULAR HEMOGLOBIN 23 pg (27.0-31.0)
[2020-11-20 11:54] LABS: CALCIUM 8.5 mg/dL (8.4-10.2); CREATININE, serum 1.23 (0.66-1.25); POTASSIUM 3.9 mmol/L (3.4-5.0)
[2020-11-20 12:00] LABS: BAND 10 % (0-10); LYMPHOCYTE 1 % (20.0-51.0); NEUTROPHILS 88 % (42.0-75.2); NUCLEATED RED BLOOD CELL 1 (0-6); OVALOCYTES 2+; SCHISTOCYTES 1+
[2020-11-20 12:01] LABS: PLATELET ESTIMATE NORMAL (NORMAL)
[2020-11-20 16:21] VITALS: BP 147/74; PULSE 89; TEMP 99
--- NOTE | 2020-11-20 17:00 | NUR ---
Pt resting in the room, no C/O pain during the day. Pt on 45 LPM airvo curently. No other complaints issues, Pt needs met throughout the day.
[2020-11-20 20:02] VITALS: BP 151/88; PULSE 92; TEMP 98.6
--- NOTE | 2020-11-20 21:52 | NUR ---
Shift assessment completed. Patient A/O x4. Patient denies any pain or discomfort. Patient currently on Airvo 45 L. Breathing even and unlabored. Patient denies SOB or dyspnea while at rest. No acute respiratory distress noted. All scheduled meds given per JUL. 4 cups of ice water provided per patient request. Call light within reach. Will continue to monitor.
--- NOTE | 2020-11-20 22:38 | NUR ---
Patient laying in bed upon enter the room. Patient denies chest pain, SOB, N/V or diarrhea at this time. Patient is currently on Airvo 45 L. Respirations even and unlabored. No acute respiratory distress noted. Right upper arm PICC site C/D/I. NS running at 75ml/hr. Call light within reach. Will continue to monitor.
[2020-11-20 23:36] VITALS: BP 158/84; PULSE 74; TEMP 98.6
[2020-11-21 03:49] VITALS: BP 150/80; PULSE 92; TEMP 98.4
--- NOTE | 2020-11-21 05:50 | NUR ---
Patient had loose black tarry stools x2 over the night. On Airvo 45L/45%. No acute respiratory distress noted. Call light within reach.
[2020-11-21 08:01] VITALS: BP 152/81; PULSE 86; TEMP 98.6
--- NOTE | 2020-11-21 08:59 | NUR ---
Pt sleeping upon entry, easily awakened, no C/O pain at this time. Shift assessment complete, left Pt call light in reach, bed in lowest position.
[2020-11-21 11:27] VITALS: BP 149/87; PULSE 88; TEMP 98.8
[2020-11-21 17:04] VITALS: BP 156/74; PULSE 88; TEMP 98.1
[2020-11-21 20:26] VITALS: BP 101/66; PULSE 98; TEMP 98.1
[2020-11-22 00:38] VITALS: BP 139/73; PULSE 91; TEMP 98.5
[2020-11-22 03:57] VITALS: BP 126/67; PULSE 95; TEMP 98.8
--- NOTE | 2020-11-22 05:28 | NUR ---
Awake, alert, oriented x 4, able to verbalize all needs, VS stable, currently on 4L NC with SPO2 @94%, denies pain, telemetry in use, encouraging po intake, 1500ml fluid restriction observed, updated on plan of care-verbalized understanding
[2020-11-22 06:54] LABS: MEAN CELL VOLUME 78 fl (80.0-100.0); MEAN CORPUSCULAR HGB CONC 29 g/dl (33.0-37.0); MEAN PLATELET VOLUME 10.3 fl (7.4-10.4); PLATELET COUNT 260 K/mm3 (130-400); RED BLOOD COUNT 3.43 M/mm3 (4.20-5.60); REDCELL DISTRIBUTION WIDTH-CV 17.4 % (11.5-14.5)
[2020-11-22 06:59] LABS: HEMATOCRIT 26.6 % (42.0-52.0); HEMOGLOBIN 7.7 g/dl (13.5-18.0); MEAN CORPUSCULAR HEMOGLOBIN 22 pg (27.0-31.0)
[2020-11-22 07:06] LABS: CALCIUM 8.9 mg/dL (8.4-10.2); CREATININE, serum 1.24 (0.66-1.25); MAGNESIUM 1.8 mg/dL (1.6-2.3); POTASSIUM 3.7 mmol/L (3.4-5.0)
[2020-11-22 07:36] LABS: BASOPHIL 1 % (0-2); LYMPHOCYTE 9 % (20.0-51.0); NEUTROPHILS 83 % (42.0-75.2); PLATELET ESTIMATE NORMAL (NORMAL); POIKILOCYTOSIS 2+
[2020-11-22 07:37] LABS: ANISOCYTOSIS 1+; MICROCYTOSIS 1+
[2020-11-22 08:00] VITALS: BP 141/77; PULSE 96; TEMP 98.6
[2020-11-22] MEDS ORDERED: MONODOX100 PO (10:51)
[2020-11-22] MEDS ORDERED: DECADRON6 MG PO (10:52)
[2020-11-22] MEDS ORDERED: PROAIR HFA0.09 MG/AC IH (10:52)
[2020-11-22] MEDS ORDERED: FERRO-TIME325 MG PO (10:55)
[2020-11-22] MEDS ORDERED: OXYGEN (10:56)
[2020-11-22 12:08] VITALS: BP 153/2; BP 153/92; PULSE 104; TEMP 98.7
[2020-11-22 12:09] VITALS: BP 154/86
--- NOTE | 2020-11-22 13:10 | NUR ---
RT notified BRENT that the patient qualified for 4 liters of oxygen. SW contacted the patient's , Antony, to update and informed her of the different DME companies. Antony chose [employer] and states that she can potato picker the oxygen from [employer]. She states that she does have some concerns about the patient getting up their stairs to get to their bathroom. SW discussed the option of having a bedside commode downstairs for the patient to use. Antony verbalized understanding and was interested in getting one. SW informed her how bedside commodes are private pay, but that [employer] should have some in stock. Antony reports that she will get one. SW contacted and faxed and emailed the oxygen order to Sabine at [facility]. SW updated the patient's RN.
--- NOTE | 2020-11-22 14:58 | NUR ---
0700 PT RECEIVED RESTING IN BED. NO S/S OF DISTRESS NOTED. CALL-LIGHT IN REACH. BED IN LOW POSITION. COMFORT MEASURES IN PLACE. OXYGEN IN PLACE VIA NC. WILL CONTINUE TO MONITOR. 0900 MEDICATIONS RECEIVED ORDERED. PT ATE HIS MEAL. WILL CONTINUE TO MONITOR. 1100 PT REQUIRES OXYGEN PRIOR TO DISCHARGE. HIGHWAY PAINTER SPOKE WITH SPOUSE WHO WILL PICKING UP THE PT'S OXYGEN PRIOR TO HIM BEING DISCHARGED. SHE WILL ALSO BE GETTING HIS COMMODE BEFORE TAKING HIM HOME. 1200 PT DISCHARGE INSTRUCTIONS REVIEWED. PT STATES HE WANTS ME TO SPEAK TO HIS IN REGARDS TO HIS DISCHARGE INSTRUCTIONS. 1415 ABLE TO SPEAK TO SPOUSE, DISCHARGE INSTRUCTIONS REVIEWED WITH HER. IMPORTANCE OF ISOLATION AND THE COVID VACCINE REVIEWED WITH HER. CURRENTLY WAITING FOR HER TO MARKET DEVELOPMENT EXECUTIVE PT'S OXYGEN FOR HIM TO BE DISCHARGED.
--- NOTE | 2020-11-22 16:30 | NUR ---
BRENT contacted the patient's , Antony, to follow up about the oxygen. Antony reports that she has picked up the patient's oxygen and has arrived to the hospital. BRENT notified the patient's RN. The patient is to discharge back home with his today, 11/22. No additional needs at this time.
--- NOTE | 2020-11-22 17:37 | NUR ---
1645 PICC LINE REMOVED BY BY CEREAL POPPER. PT LYING FLAT FOR 30 MINUTES. NO SIGH OF BLEEDING NOTICED AND PT TOLERATED PICC REMOVAL PER MD ORDER. 1650 PT SPOUSE DELIVERED PT'S HOME OXYGEN. USE OF OXYGEN EXPLAINED TO SPOUSE AND PT. DISCHARGE INSTRUCTIONS ALSO REVIEWED WITH PT AND SPOUSE. ALL QUESTIONS ANSWERED.
== END 2020-11-22 17:23 | disposition home or self-care (01) | DRG 871 ==
LOC: COL.ER 22:17 → MEDICAL 11-18 01:24
PROVIDERS: Emergency Medicine; Internal Medicine; Nurse Practitioner Family; ADMIT Student in an Organized Health Care Education/Training Program
PROC: XW033E5 Introduction of Remdesivir Anti-infective into Peripheral Vein, Percutaneous Approach, New Technology Group 5 (ICD-10-PCS; principal; 2020-11-18)
PROC: 02HV33Z Insertion of Infusion Device into Superior Vena Cava, Percutaneous Approach (ICD-10-PCS; 2020-11-20)
DX: A41.89 Other specified sepsis (principal); U07.1 COVID-19; J96.01 Acute respiratory failure with hypoxia; I21.A1 Myocardial infarction type 2; N17.9 Acute kidney failure, unspecified; K92.1 Melena; N40.0 Benign prostatic hyperplasia without lower urinary tract symptoms; E78.5 Hyperlipidemia, unspecified; I12.9 Hypertensive chronic kidney disease with stage 1 through stage 4 chronic kidney disease, or unspecified chronic kidney disease; N18.30 Chronic kidney disease, stage 3 unspecified; K52.9 Noninfective gastroenteritis and colitis, unspecified; D64.9 Anemia, unspecified; Z98.890 Other specified postprocedural states; Z87.891 Personal history of nicotine dependence
CPT/HCPCS: 99223-AI; 99232-AI; 99233-AI; 99239; C1751; C9113; J0696; J1100; J1650; J1756; J2405; J7030; J7050; J8540

== ENCOUNTER 2020-11-24 15:01 | Inpatient (IN) | payer MEDICARE, MEDICAID ==
[~2020-11-24] VITALS: Ht 185.4 cm; Wt 79.9 kg
[~2020-11-24 15:01] MED LIST changes: +DECADRON6 MG PO; +FERRO-TIME325 MG PO; +MONODOX100 PO; +OXYGEN; +PROAIR HFA0.09 MG/AC IH; +REFRESH 1 ML1 ML OP; +SYSTANE GEL EYE10 ML OP
[2020-11-24 15:14] LABS: ARTERIAL BLD GAS O2 SATURATION 94.9 % (92-100); ARTERIAL BLD GAS TCO2 CT 23.3; ARTERIAL BLOOD GAS BASE EXCESS 0.2 (-2-2); ARTERIAL BLOOD GAS HCO3 22.4 meq/L (22-26); ARTERIAL BLOOD GAS PCO2 27.9 mmHg (35-45); ARTERIAL BLOOD GAS PO2 74.9 mmHg (80-100); ARTERIAL BLOOD GAS pH 7.52 (7.35-7.45)
[2020-11-24 15:29] LABS: MEAN CELL VOLUME 76 fl (80.0-100.0); MEAN CORPUSCULAR HGB CONC 29 g/dl (33.0-37.0); MEAN PLATELET VOLUME 10.8 fl (7.4-10.4); RED BLOOD COUNT 4.07 M/mm3 (4.20-5.60); REDCELL DISTRIBUTION WIDTH-CV 18.5 % (11.5-14.5)
[2020-11-24 15:32] LABS: HEMATOCRIT 31.1 % (42.0-52.0); HEMOGLOBIN 9.1 g/dl (13.5-18.0); MEAN CORPUSCULAR HEMOGLOBIN 22 pg (27.0-31.0); PLATELET COUNT 415 K/mm3 (130-400)
[2020-11-24 15:40] LABS: ALBUMIN 3.5 gm/dL (3.5-5.0); BILIRUBIN,TOTAL 0.7 mg/dL (0.0-1.0); CALCIUM 8.9 mg/dL (8.4-10.2); CREATININE, serum 1.33 (0.66-1.25); TOTAL PROTEIN 7.6 gm/dL (6.4-8.2)
[2020-11-24 15:57] LABS: BAND 2 % (0-10); EOSINOPHIL 1 % (0-4); LYMPHOCYTE 12 % (20.0-51.0); NEUTROPHILS 84 % (42.0-75.2)
[2020-11-24 15:58] LABS: ANISOCYTOSIS 1+; MICROCYTOSIS 1+; OVALOCYTES 2+; PLATELET ESTIMATE INCREASED (NORMAL)
[2020-11-24 17:52] VITALS: BP 150/72; PULSE 116; TEMP 98.3
[2020-11-24 19:48] VITALS: BP 105/88; PULSE 116; TEMP 99.8
--- NOTE | 2020-11-24 20:00 | NUR ---
Assessment complete. Patient is resting in bed on 5 liters oxymask. He removes mask briefly to swallow pills and desats to the 80's; it takes him 5 minutes on 15 liters oxymask to recover. He is titrates down to 10 liters where he is satting 94%. He is mildly febrile at 99.5 degrees; PRN Tylenol order obtained. He complains of generalized achiness but no pain. No edema is noted. A surgical incision is noted on his left palm; Sutures are intact and patient states they were scheduled to be removed at [facility] on 11/27. Patient's , Antony, has been updated on patient's status. Comfort measures are provided. Call light in reach and bed alarm set. Will continue to monitor.
[2020-11-25 00:46] VITALS: BP 133/84; PULSE 109; TEMP 98.7
[2020-11-25 04:40] VITALS: BP 119/73; PULSE 106; TEMP 99.2
[2020-11-25 08:08] VITALS: BP 141/83; PULSE 108; TEMP 98
--- NOTE | 2020-11-25 08:08 | NUR ---
Pt awake and alert upon entry, no C/O pain zbigniew this time. Currently on 8 LPM O2. Shift assessment complete, left Pt call light in reach, bed in lowest position.
[2020-11-25 11:11] VITALS: BP 135/77; PULSE 97; TEMP 97.7
[2020-11-25 14:46] LABS: MEAN CELL VOLUME 76 fl (80.0-100.0); MEAN CORPUSCULAR HGB CONC 29 g/dl (33.0-37.0); MEAN PLATELET VOLUME 10.4 fl (7.4-10.4); PLATELET COUNT 367 K/mm3 (130-400); RED BLOOD COUNT 3.91 M/mm3 (4.20-5.60); REDCELL DISTRIBUTION WIDTH-CV 18.4 % (11.5-14.5)
[2020-11-25 14:47] LABS: HEMATOCRIT 29.8 % (42.0-52.0); HEMOGLOBIN 8.6 g/dl (13.5-18.0); MEAN CORPUSCULAR HEMOGLOBIN 22 pg (27.0-31.0)
[2020-11-25 14:56] LABS: C-REACTIVE PROTEIN 7.7 mg/dL (0.0-0.9); CALCIUM 8.7 mg/dL (8.4-10.2); CREATININE, serum 1.16 (0.66-1.25); MAGNESIUM 2.1 mg/dL (1.6-2.3); POTASSIUM 4.2 mmol/L (3.4-5.0)
[2020-11-25 15:15] LABS: LYMPHOCYTE 7 % (20.0-51.0); MICROCYTOSIS 1+; NEUTROPHILS 92 % (42.0-75.2)
[2020-11-25 15:16] LABS: ANISOCYTOSIS 2+; HYPOCHROMIA 3+; PLATELET ESTIMATE NORMAL (NORMAL)
[2020-11-25 15:17] LABS: OVALOCYTES 2+; SCHISTOCYTES 1+
[2020-11-25 15:46] VITALS: BP 132/81; PULSE 97; TEMP 98.1
[2020-11-25 20:49] VITALS: BP 146/73; PULSE 99; TEMP 98.7
[2020-11-25 23:02] LABS: ARTERIAL BLD GAS O2 SATURATION 91.1 % (92-100); ARTERIAL BLD GAS TCO2 CT 23.2; ARTERIAL BLOOD GAS BASE EXCESS -0.4 (-2-2); ARTERIAL BLOOD GAS HCO3 22.3 meq/L (22-26); ARTERIAL BLOOD GAS PCO2 29.9 mmHg (35-45); ARTERIAL BLOOD GAS pH 7.49 (7.35-7.45)
[2020-11-26] VITALS (471 sets, daily range): BP systolic 131–138; BP diastolic 75–86; PULSE 88–97; TEMP 97.8–98.9; O2SAT 80–100
--- NOTE | 2020-11-26 08:30 | NUR ---
Pt awake in bed upon entry, no C/O pain at this time. Shift assessments complete, left Pt call light in reach, bed in lowest position.
--- NOTE | 2020-11-26 11:25 | NUR ---
RECEIVED REPORT FROM JO DALAL. AWAITING ARRIVAL OF PT TO ICU 4.
--- NOTE | 2020-11-26 11:29 | NUR ---
SW completed intake with spouse Antnoy [phone] or [phone]. states that patient lives with her in [facility]. states that patient does not utilize DME and recieves help from her occasionally with showers. provides that there was a nurse that came from [facility] to assist with checking clinical needs. SW will assist in providing updates to [facility] and confirm services. provides that PCP is Dr. Cespedes and pharmacy is [facility]. provides that she thinks she is appointed DPOA, but unsure. She states she has been to patient for 30 years. Plan is patient to return home. states that she would like to ensure that services is set up prior to DC. SW will continue to follow. DC plan: home with spouse, [facility]
--- NOTE | 2020-11-26 11:48 | NUR ---
PT ARRIVES TO ICU 4 VIA BED. PT TRANSFERS SELF TO ICU BED. RT AT BEDSIDE PLACES PT BACK ON AIRVO 50L 78%. CALL LIGHT AND PHONE WITHIN REACH. URINAL GIVEN. PLACED ON BEDSIDE CONTINUOUS MONITOR. VSS. SPOKE TO PT'S AND UPDATED HER. EDUCATED PT ON CALLING FOR HELP BEFORE GETTING OOB, VERBALIZED UNDERSTANDING.
--- NOTE | 2020-11-26 12:11 | NUR ---
DR HURST UPDATED ON PT'S CURRENT AIRVO SETTINGS. PROVIDER REQUESTS CXR NOW.
[2020-11-26 12:15] LABS: MEAN CELL VOLUME 76 fl (80.0-100.0); MEAN CORPUSCULAR HGB CONC 31 g/dl (33.0-37.0); MEAN PLATELET VOLUME 10.6 fl (7.4-10.4); PLATELET COUNT 358 K/mm3 (130-400); RED BLOOD COUNT 3.39 M/mm3 (4.20-5.60)
[2020-11-26 12:19] LABS: HEMATOCRIT 25.6 % (42.0-52.0); HEMOGLOBIN 7.8 g/dl (13.5-18.0); MEAN CORPUSCULAR HEMOGLOBIN 23 pg (27.0-31.0)
[2020-11-26 12:22] LABS: C-REACTIVE PROTEIN 4.8 mg/dL (0.0-0.9); CALCIUM 8.4 mg/dL (8.4-10.2); CREATININE, serum 1.11 (0.66-1.25); MAGNESIUM 1.9 mg/dL (1.6-2.3); POTASSIUM 4.2 mmol/L (3.4-5.0)
[2020-11-26 12:49] LABS: LYMPHOCYTE 3 % (20.0-51.0); METAMYELOCYTE 1 % (0-0); NEUTROPHILS 95 % (42.0-75.2); OVALOCYTES 2+; PLATELET ESTIMATE NORMAL (NORMAL)
[2020-11-26 12:51] LABS: ANISOCYTOSIS 2+; SCHISTOCYTES 2+
[2020-11-27] VITALS (811 sets, daily range): BP systolic 110–151; BP diastolic 63–93; PULSE 83–96; TEMP 97.8–98.9; O2SAT 84–100
[2020-11-27 06:01] LABS: EOS # 0.1 (0.0-0.7); EOS % 0.6 % (0-4.0); GRAN # 9.3 (1.4-6.5); GRAN % 89.4 % (42.2-75.2); LYMPH # 0.4 (1.2-3.4); LYMPH % 3.6 % (20.0-51.0); MEAN CELL VOLUME 75 fl (80.0-100.0); MEAN CORPUSCULAR HGB CONC 31 g/dl (33.0-37.0); MEAN PLATELET VOLUME 11.1 fl (7.4-10.4); MONO # 0.5 (0.1-0.6); MONO % 5.1 % (1.7-9.3); PLATELET COUNT 261 K/mm3 (130-400); RED BLOOD COUNT 3.37 M/mm3 (4.20-5.60); REDCELL DISTRIBUTION WIDTH-CV 18.2 % (11.5-14.5)
[2020-11-27 06:07] LABS: HEMATOCRIT 25.2 % (42.0-52.0); HEMOGLOBIN 7.7 g/dl (13.5-18.0); MEAN CORPUSCULAR HEMOGLOBIN 23 pg (27.0-31.0)
[2020-11-27 06:08] LABS: BILIRUBIN,TOTAL 0.4 mg/dL (0.0-1.0); CALCIUM 8.3 mg/dL (8.4-10.2); CREATININE, serum 1.22 (0.66-1.25); POTASSIUM 3.9 mmol/L (3.4-5.0); TOTAL PROTEIN 6.6 gm/dL (6.4-8.2)
[2020-11-27 08:22] LABS: PATHOLOGY DIFF REVIEW OK
--- NOTE | 2020-11-27 08:47 | NUR ---
Report given by JO Fernandez. Assessment completed. PT denies pain or shortness of breath. PT is on AirVo. Afebrile. PT is able to eat 50% of breakfast this morning. Medications and lines verified. PT is resting in bed with call light in reach. Stated he would like to sleep and will call with any needs
--- NOTE | 2020-11-27 14:20 | NUR ---
Patient is in ICU care today. survey workers supervisor will continue to follow to assess for appropriateness of a [facility] referral. Patient continues plan to discharge home if able.
--- NOTE | 2020-11-27 19:15 | NUR ---
Pt report given to JO Fernandez.
[2020-11-28] VITALS (881 sets, daily range): BP systolic 113–173; BP diastolic 63–109; PULSE 85–99; TEMP 98.6–99.3; O2SAT 70–100
[2020-11-28 09:06] LABS: MEAN CELL VOLUME 77 fl (80.0-100.0); MEAN CORPUSCULAR HGB CONC 29 g/dl (33.0-37.0); MEAN PLATELET VOLUME 10.1 fl (7.4-10.4); RED BLOOD COUNT 3.34 M/mm3 (4.20-5.60); REDCELL DISTRIBUTION WIDTH-CV 17.9 % (11.5-14.5)
[2020-11-28 09:08] LABS: HEMATOCRIT 25.7 % (42.0-52.0); HEMOGLOBIN 7.5 g/dl (13.5-18.0); MEAN CORPUSCULAR HEMOGLOBIN 22 pg (27.0-31.0)
[2020-11-28 09:09] LABS: PLATELET COUNT 399 K/mm3 (130-400)
[2020-11-28 09:13] LABS: CALCIUM 8.6 mg/dL (8.4-10.2); CREATININE, serum 1.24 (0.66-1.25); POTASSIUM 3.7 mmol/L (3.4-5.0)
[2020-11-28 10:02] LABS: LYMPHOCYTE 9 % (20.0-51.0); NEUTROPHILS 90 % (42.0-75.2)
[2020-11-28 10:06] LABS: ANISOCYTOSIS 1+; HYPOCHROMIA 3+; MICROCYTOSIS 1+; PLATELET ESTIMATE NORMAL (NORMAL); SCHISTOCYTES 1+
--- NOTE | 2020-11-28 20:53 | NUR ---
Patient assessed around 1999. Alert and oriented x 4, and able to make needs known. Patient is Covid+, airborn/contact precautions are in place. Denies having pain and discomfort at this time. Peripheral INTs to left and right AC flushed. Both sites are without redness, warmth, swelling, and pain. Patient reports SOB and dyspnea at rest, and gets worse with any exertion. On Airvo at 55L 55%. LS CTA in upper lobes, diminished in lower. Respirations shallow, tachypnea present. Encouraged to try and take slow, deep breaths. Has occasional cough, and reports some thin, white sputum production. HRR. Normal sinus on telemetry. Capillary refill less than 3 seconds. Non-tenting skin turgor. BSAx4. Abdomen soft and non-tender. No edema. Sutures to surgical site on left hand are intact. Patient voices no questions, needs, or concerns at this time. Resting in bed with call light within reach.
[2020-11-29] VITALS (463 sets, daily range): BP systolic 139–154; BP diastolic 74–100; PULSE 84–100; TEMP 97.9–99.2; O2SAT 62–100
[2020-11-29 06:36] LABS: BASO % 0.1 % (0.0-2.0); EOS % 0.3 % (0-4.0); GRAN # 10.4 (1.4-6.5); GRAN % 88.7 % (42.2-75.2); LYMPH # 0.6 (1.2-3.4); LYMPH % 5.3 % (20.0-51.0); MEAN CELL VOLUME 75 fl (80.0-100.0); MEAN CORPUSCULAR HGB CONC 30 g/dl (33.0-37.0); MEAN PLATELET VOLUME 9.9 fl (7.4-10.4); MONO # 0.5 (0.1-0.6); MONO % 4.5 % (1.7-9.3); PLATELET COUNT 413 K/mm3 (130-400); REDCELL DISTRIBUTION WIDTH-CV 18.2 % (11.5-14.5)
--- NOTE | 2020-11-29 06:37 | NUR ---
Patient has been resting in bed with call light within reach. Patient received bed bath, and linens changed. Requested something to help him sleep and received order for PRN Melatonin. When this nurse went to give medication, patient was resting in bed with call light within reach. Continues to wear Airvo at 55 L. Voices no questions, needs, or concerns at this time. Call light within reach.
[2020-11-29 06:39] LABS: HEMATOCRIT 26.4 % (42.0-52.0); HEMOGLOBIN 7.9 g/dl (13.5-18.0); MEAN CORPUSCULAR HEMOGLOBIN 23 pg (27.0-31.0)
[2020-11-29 06:49] LABS: CALCIUM 8.8 mg/dL (8.4-10.2); CREATININE, serum 1.23 (0.66-1.25)
--- NOTE | 2020-11-29 07:30 | NUR ---
Patient resting in bed; VS stable. Denies any shortness of breath. Reports some burning in the throat and mid chest. States it is worse with coughing. Requested cranberry juice to help with soreness in throat. Will continue to monitor.
[2020-11-29 08:17] LABS: PATHOLOGY DIFF REVIEW OK
--- NOTE | 2020-11-29 14:00 | NUR ---
Patient resting in bed talking to on the telephone. Sutures removed from left hand. Tolerated well. Will continue to monitor.
--- NOTE | 2020-11-29 14:15 | NUR ---
Called report to JO Little.
--- NOTE | 2020-11-29 15:30 | NUR ---
Patient transfered upstairs on 15 L oxymask. Switched back to Airvo on previous settings once in the room on medical floor. Tolerated transfer well. Accepting RN notified of patients arrival.
--- NOTE | 2020-11-29 23:35 | NUR ---
Patient assessed around 2100. Denies having pain and discomfort. Denies SOB and dyspnea. Occasional moist cough. On Airvo at 45L 60%. LS CTA in upper, diminished in lower. Respirations even and unlabored. PICC to [facility]. Received ABX per orders. Patient voices no questions, needs, or concerns at this time. Resting in bed with call light within reach.
--- NOTE | 2020-11-30 04:11 | NUR ---
Patient has been resting in bed with call light within reach. Has voiced no questions, needs, or concerns at this time. Continues on Airvo.
[2020-11-30 04:42] VITALS: BP 139/73; PULSE 90; TEMP 99.2
[2020-11-30 07:05] LABS: CALCIUM 8.5 mg/dL (8.4-10.2); CREATININE, serum 1.38 (0.66-1.25); MAGNESIUM 1.9 mg/dL (1.6-2.3)
[2020-11-30 08:36] VITALS: BP 159/82; PULSE 82; TEMP 98.2
[2020-11-30 08:37] LABS: MEAN CELL VOLUME 77 fl (80.0-100.0); MEAN CORPUSCULAR HGB CONC 29 g/dl (33.0-37.0); MEAN PLATELET VOLUME 10.5 fl (7.4-10.4); PLATELET COUNT 416 K/mm3 (130-400); REDCELL DISTRIBUTION WIDTH-CV 18.3 % (11.5-14.5)
[2020-11-30 08:38] LABS: HEMATOCRIT 25.5 % (42.0-52.0); HEMOGLOBIN 7.3 g/dl (13.5-18.0); MEAN CORPUSCULAR HEMOGLOBIN 22 pg (27.0-31.0)
[2020-11-30 11:34] VITALS: BP 136/81; PULSE 94; TEMP 98
--- NOTE | 2020-11-30 15:20 | NUR ---
Report from JO Guajardo
--- NOTE | 2020-11-30 15:37 | NUR ---
PT RECEIVED RESTING IN BED. NO S/S OF DISTRESS. MEDICATIONS ADMINISTERED ORDERED. OXYGEN TITRATED TO 10L BY RESPIRATORY THERAPIST, OXYGEN LEVELS MAINTAINED ABOVE 90%. PT DENIES HAVING PAIN. PT ATE HIS MEALS. NO COMPLAINTS AT THIS TIME. REPORT GIVEN TO NURSE BLAKE.
[2020-11-30 15:50] VITALS: BP 129/72; PULSE 94; TEMP 98.4
--- NOTE | 2020-11-30 18:32 | NUR ---
Patient sitting up in bed talking on a cell phone with his , she is on speaker phone. VSS 10L HF NC O2. Dyspnea with talking. IV CDI. Denies pain and discomfort. Droplet/contact precautions in place. No further needs expressed from the patient. Call light within reach
[2020-11-30 19:55] VITALS: BP 141/77; PULSE 91; TEMP 98.7
--- NOTE | 2020-11-30 21:23 | NUR ---
Patient laying in bed upon enter the room. Shift assessment completed. Patient alert and oriented. Patient currently on oxygen 10L via high flow NC. Breathing even and unlabored. No acute respiratory distress noted. Patient denies SOB or dyspnea while at rest. All scheduled meds given per JUL. Ice water provided per patient request. Call light within reach. Will continue to monitor.
--- NOTE | 2020-12-01 00:31 | NUR ---
Patient used bed-side commode around 23:40 pm. Patient had large BM. Patient assisted back to the bed. Patient reports SOB with actitivities. SPO2 75-80% at this time and unable to recover above 90%. Called respiratory therapist and to put Airvo back on patient. Patient curretly on Airvo 55L. Call light within reach. Will continue to monitor.
[2020-12-01 01:05] VITALS: BP 126/75; PULSE 92; TEMP 98.9
[2020-12-01 05:46] VITALS: BP 123/68; PULSE 81; TEMP 98.1
--- NOTE | 2020-12-01 05:58 | NUR ---
Patient currently on Airvo 55L/80%. SPO2 93% on Airvo 55L. Cranberry juice and 1 cup of ice provided per patient request. Call light within reach. Will continue to monitor.
[2020-12-01 06:16] LABS: MEAN CELL VOLUME 77 fl (80.0-100.0); MEAN CORPUSCULAR HGB CONC 30 g/dl (33.0-37.0); MEAN PLATELET VOLUME 10.2 fl (7.4-10.4); PLATELET COUNT 408 K/mm3 (130-400); RED BLOOD COUNT 3.35 M/mm3 (4.20-5.60); REDCELL DISTRIBUTION WIDTH-CV 18.6 % (11.5-14.5)
[2020-12-01 06:22] LABS: HEMATOCRIT 25.7 % (42.0-52.0); HEMOGLOBIN 7.6 g/dl (13.5-18.0); MEAN CORPUSCULAR HEMOGLOBIN 23 pg (27.0-31.0)
[2020-12-01 06:27] LABS: ALBUMIN 3.2 gm/dL (3.5-5.0); BILIRUBIN,TOTAL 0.4 mg/dL (0.0-1.0); CALCIUM 8.8 mg/dL (8.4-10.2); CREATININE, serum 1.29 (0.66-1.25); MAGNESIUM 1.9 mg/dL (1.6-2.3); POTASSIUM 4.5 mmol/L (3.4-5.0)
[2020-12-01 08:00] VITALS: BP 141/55; PULSE 90; TEMP 98.8
--- NOTE | 2020-12-01 10:33 | NUR ---
The patient is requiring 55 liters of oxygen, via high flow cannula. BRENT staffed with the clinical team on whether the patient would be a candidate for [facility]. The hospitalist would like a referral sent to [facility]. BRENT contacted and faxed a referral to Sascha at [facility]. Awaiting screen.
[2020-12-01 12:30] VITALS: BP 145/80; PULSE 100; TEMP 98.1
[2020-12-01 16:00] VITALS: BP 138/50; PULSE 96; TEMP 98.6
--- NOTE | 2020-12-01 16:06 | NUR ---
Sascha, at [facility], reports that they patient qualifies and that he has submitted the patient's information to insurance for prior-auth. Due to the patient having Medicare [employer], he reports that he will likely not have an answer from insurance until Friday and will follow up with this SW on Friday.
[2020-12-01 19:23] VITALS: BP 150/85; PULSE 97; TEMP 98.3
--- NOTE | 2020-12-01 21:40 | NUR ---
Shift assessment completed. Patient alert and oriented. Patient currently on Airvo 55L/75%. Patient reports SOB with minimal activities. Patient denies any chest pain, N/V, or diarrhea. Patient requesting sleeping pill for tonight. PRN Melatonin given per JUL. Call light within reach. Will continue to monitor.
[2020-12-02 00:22] VITALS: BP 129/77; PULSE 95; TEMP 98.9
[2020-12-02 04:02] VITALS: BP 135/83; PULSE 98; TEMP 98.7
[2020-12-02 08:00] VITALS: BP 153/87; PULSE 98; TEMP 98.9
[2020-12-02 09:30] LABS: MEAN CELL VOLUME 78 fl (80.0-100.0); MEAN CORPUSCULAR HGB CONC 29 g/dl (33.0-37.0); MEAN PLATELET VOLUME 10.4 fl (7.4-10.4); PLATELET COUNT 437 K/mm3 (130-400); RED BLOOD COUNT 3.71 M/mm3 (4.20-5.60)
[2020-12-02 09:31] LABS: HEMATOCRIT 28.8 % (42.0-52.0); HEMOGLOBIN 8.3 g/dl (13.5-18.0); MEAN CORPUSCULAR HEMOGLOBIN 22 pg (27.0-31.0)
[2020-12-02 09:42] LABS: ALBUMIN 3.4 gm/dL (3.5-5.0); BILIRUBIN,TOTAL 0.4 mg/dL (0.0-1.0); CREATININE, serum 1.31 (0.66-1.25); MAGNESIUM 1.8 mg/dL (1.6-2.3); TOTAL PROTEIN 7.4 gm/dL (6.4-8.2)
[2020-12-02 12:00] VITALS: BP 115/71; PULSE 95; TEMP 98.3
--- NOTE | 2020-12-02 14:54 | NUR ---
0700 PT RECEIVED SITTING IN BED WATCHING TV. NO S/S OF DISTRESS NOTICED. OXYGEN ON. PT NOTICED TO BED LABORED WHEN GETTING OUT OF BED TO THE COMMODE. PT DENIES HAVING PAIN AT THIS TIME. URINAL EMPTIED. CALL-LIGHT IN REACH. BED IN LOW POSITION. PT ENCOURAGED TO CALL FOR ASSISTANCE WHEN HE NEEDS TO USE THE RESTROOM. ISOLATION PRECAUTION MAINTAINED. WILL CONTINUE TO MONITOR. 0800 V/S STABLE. LABS DRAMN. 0900 PT IS EATING HIS BREAKFAST. MEDICATIONS ADMINISTERED ORDERED. PT SET-UP TO DO HIS A.M. CARE. 1100 PT OFFERED A SNACK. 1200 V/S STABLE. PT DENIES HAVING PAIN. PT EATING HIS LUNCH.
[2020-12-02 16:00] VITALS: BP 119/76; PULSE 95; TEMP 98.1
[2020-12-02 20:32] VITALS: BP 118/78; PULSE 59; TEMP 99.2
[2020-12-03 00:34] VITALS: BP 127/76; PULSE 79; TEMP 98.3
--- NOTE | 2020-12-03 02:36 | NUR ---
PATIENT VSS. C/O LEFT LOWER BACK PAIN, HOSPITALIST LISA MADE AWARE, LIDOCAINE PATCH ORDERED AND PLACED TO LEFT LOWER BACK. MELATONIN GIVEN FOR SLEEP. PATIENT SHOW SOB WITH ACTIVITIES. VOIDES IN URINAL. MOVE HIMSELF IN BED INDEPENDENTLY. TOLERATED PO INTAKE WELL. DENIES NAUSEA. IV ABX GIVEN ORDERED. BED IN LOW POSITION AND LOCKED. WILL CONTINUE TO MONITOR.
[2020-12-03 04:12] VITALS: BP 130/71; PULSE 70; TEMP 99
[2020-12-03 07:01] LABS: COLLECTION METHOD CLEAN CATCH
[2020-12-03 07:07] LABS: MUCOUS Present /lpf; PH 5 (5-8); SQUAMOUS EPITHELIAL None Seen /hpf; URINE APPEARANCE Clear; URINE BACTERIA Rare /hpf; URINE BILIRUBIN Negative (NEGATIVE); URINE BLOOD Negative (NEGATIVE); URINE COLOR Yellow; URINE GLUCOSE Negative (NEGATIVE); URINE KETONE Negative (NEGATIVE); URINE LEUKOCYTE ESTERASE Negative (NEGATIVE); URINE NITRATE Negative (NEGATIVE); URINE PROTEIN(semi-quant) Negative (NEGATIVE); URINE RBC 0-2 /hpf; URINE UROBILINOGEN Negative (NEGATIVE)
[2020-12-03 08:52] VITALS: BP 136/82; PULSE 99; TEMP 98.2
--- NOTE | 2020-12-03 09:00 | NUR ---
PT REPORTS PRODUCTIVE COUGH, PT AOX4, APPEARS SOB WITH MOVEMENT IN BED, REPORTS CHEST PAIN/ABD PAIN WITH COUGH, LIDOCAINE PATCH PLACED ON BACK, MEDICATIONS GIVEN, BREAKFAST BROUGHT IN, NO OTHER NEEDS
[2020-12-03 11:43] VITALS: BP 139/72; PULSE 96; TEMP 98.8
[2020-12-03 16:05] VITALS: BP 116/83; PULSE 100; TEMP 98.9
--- NOTE | 2020-12-03 18:11 | NUR ---
PT PLEASANT, AOX4, REPORTS PAIN IN CHEST AND ABD WITH COUGH, REF TYLENOL, PT FREQUENTLY C/O COLD FOOD DESPITE MICROWAVING IT SOON IT COMES TO THE FLOOR AND BRINGING IT IN, FOOD TOO HOT TO HANDLE WITHOUT CARRYING PLATE WITH [place] AND PT CLAIMS IT IS COLD. PT TOLERATING AIRVO, GETS SOB WITH MOVEMENT IN THE BED, BROUGHT IN WIPES FOR PT TO GET BED BATH, GOWN CHANGED, SHEETS CHANGED, NO OTHER NEEDS
[2020-12-03 20:08] VITALS: BP 120/73; PULSE 104; TEMP 98.2
--- NOTE | 2020-12-03 21:08 | NUR ---
PATIENT RESTING IN BED. OCCASIONAL COUGH NOTED DURING ASSESSMENT. RHONCHI LUNG SOUNDS. PRN COUGH MEDICATION GIVEN. VSS. ON AIRVO, NO RESPIRATORY DISTRESS. CALL LIGHT WITHIN REACH. WILL CONTINUE TO MONITOR.
[2020-12-04] VITALS (8 sets, daily range): BP systolic 115–141; BP diastolic 63–85; PULSE 79–106; TEMP 98.1–99.3
[2020-12-04 05:46] LABS: MEAN CELL VOLUME 80 fl (80.0-100.0); MEAN CORPUSCULAR HGB CONC 29 g/dl (33.0-37.0); MEAN PLATELET VOLUME 10.1 fl (7.4-10.4); PLATELET COUNT 385 K/mm3 (130-400); REDCELL DISTRIBUTION WIDTH-CV 20.7 % (11.5-14.5)
[2020-12-04 05:52] LABS: HEMATOCRIT 27.9 % (42.0-52.0); HEMOGLOBIN 8.1 g/dl (13.5-18.0); MEAN CORPUSCULAR HEMOGLOBIN 23 pg (27.0-31.0)
[2020-12-04 05:58] LABS: CALCIUM 8.6 mg/dL (8.4-10.2); CREATININE, serum 1.39 (0.66-1.25); POTASSIUM 4.1 mmol/L (3.4-5.0)
[2020-12-04 06:38] LABS: BAND 1 % (0-10); EOSINOPHIL 1 % (0-4); LYMPHOCYTE 8 % (20.0-51.0); MYELOCYTE 1 % (0-0); NEUTROPHILS 87 % (42.0-75.2)
[2020-12-04 06:39] LABS: POIKILOCYTOSIS 1+; POLYCHROMASIA 1+
[2020-12-04 06:40] LABS: ANISOCYTOSIS 2+; OVALOCYTES 2+
--- NOTE | 2020-12-04 06:47 | NUR ---
PT AWAKE WITH AIRVO IN PLACE, REQUESTING I CALL THE KITCHEN FOR HIM. KITCHEN WAS CALLED AND BREAKFAST, LUNCH, AND DINNER ORDERED PER PT REQUEST.
--- NOTE | 2020-12-04 07:50 | NUR ---
PT PLEASANT, AOX4, REPORTS PAIN WITH COUGH, MEDICATIONS GIVEN TO PT, VITALS TAKEN, ASSESSMENT PERFORMED, PT HAS ORDERED BREAKFAST, NO OTHER NEEDS AT THIS TIME
--- NOTE | 2020-12-04 09:19 | NUR ---
Gladys, at [facility], reports that they should be hearing from the patient's insurance today. She states that she will contact SW back once she hears something. She will also need to make sure she has a bed available. SW contacted the patient and updated him on the above. He requested that SW contact his . BRENT contacted his , Antony, and updated her on the above. Tigre was in agreement to the plan.
--- NOTE | 2020-12-04 17:10 | NUR ---
PT PLEASANT, AOX4, SOB WITH MOVEMENT IN THE BED, PT HAD LARGE BM TODAY, APPEARS IN [employer], TALKING FREQUENTLY TO FAMILY ON THE PHONE DURING THE DAY, MEDICATIONS GIVEN PERSCRIBED, DENIES N/V/D. GOOD ORAL INTAKE, NO OTHER NEEDS
--- NOTE | 2020-12-05 00:09 | NUR ---
Pt alert and oriented. Expiratory wheezes noted bilaterally in lower lobes. Pt has non-productive cough. Pt asked for prn melatonin to help sleep tonight. Pt denies pain at this time. Pt's purple lumen flushed, blood return noted. Pt's red lumen, no blood return noted at this time.
--- NOTE | 2020-12-05 03:31 | NUR ---
Back charting. 0000: Pt's had both lumens flushed with 10mls, blood return noted.
[2020-12-05 04:32] VITALS: BP 149/72; PULSE 92; TEMP 98.6
[2020-12-05 07:33] VITALS: BP 97/65; PULSE 98; TEMP 98.4
[2020-12-05 07:58] LABS: POTASSIUM 3.9 mmol/L (3.4-5.0)
[2020-12-05 08:29] LABS: CALCIUM 8.4 mg/dL (8.4-10.2); CREATININE, serum 1.28 (0.66-1.25)
--- NOTE | 2020-12-05 09:37 | NUR ---
Sascha, at [facility], reports that he received auth from the patient's insurance and is just waiting on a bed to open up now. It could be at their [place] or [place] location. Sascha requested updates. BRENT faxed updates to Sascha. BRENT notified the hospitalist. BRENT contacted and updated the patient's , Antony.
--- NOTE | 2020-12-05 11:12 | NUR ---
Scheduled medications given. Shift assessment preformed. Patient is currently requiring 55 L of O2 via airvo. Patient denies any N/V/D, pain, discomfort, or further needs at this time. VSS. Call light in reach. Droplet/Contact precautions in place.
[2020-12-05 11:26] VITALS: BP 138/76; PULSE 91; TEMP 99.2
--- NOTE | 2020-12-05 11:53 | NUR ---
BRENT contacted the [facility] Red team and obtained their delinquency prevention social worker, Odettes, phone number [phone]. BRENT contacted Nurys and updated her on the patient's request for grab bars being installed in his apartment, by them. Nurys reports that this is something that they can do. PT is is also recommending HH. Nurys reports that the patient can chose a home health agency, but that they may need a request for service form completed, for their doctor to follow for home health and for the in home equipment. She reports that she will contact BRENT back, once she knows. BRENT attempted to contact the patient's room phone to discussed home health. His phone was busy. SW to attempt to contact the patient again at a later time.
--- NOTE | 2020-12-05 14:03 | NUR ---
Sascha, at [facility], reports that they able to accept the patient and that a bed is available in [place]. The accepting provider is Dr. Head and he will go to room 108. BRENT updated the hospitalist and the patient's , Antony. Antony is in agreement to the plan. The patient is to discharge today, 12/05, to [facility] in [place]. Transportation was scheduled at 1600, via [facility]. BRENT informed the patient's (Antony), his RN, and Sascha at [facility] of the transport time. They were all in agreement to the time. The patient's gave BRENT approval to sign the EMS Transfer Consent form on her behalf. No additional needs at this time.
[2020-12-05] MEDS ORDERED: RT Albuterol HFA MDI IH (14:37)
[2020-12-05] MEDS ORDERED: TYLENOL 325MG325 MG PO (14:38)
[2020-12-05] MEDS ORDERED: ROBITUSSIN100 MG/5 M PO (14:38)
[2020-12-05] MEDS ORDERED: DECADRON6 MG PO (14:38)
[2020-12-05] MEDS ORDERED: HEPARIN SOD5000 U/ML SQ (14:39)
[2020-12-05 14:53] VITALS: BP 138/76; PULSE 91; TEMP 99.2
--- NOTE | 2020-12-05 16:33 | NUR ---
Patient transferring the [facility] in [place]. EMS picked up patient up at 1600. All scheduled medications given. Items collected and sent with patient. VSS. Patient denies any pain, discomfort, or futher needs. Attempted to call report, nurse unavailable at this time. Will attempt again shortly.
--- NOTE | 2020-12-05 17:22 | NUR ---
Report given to JO Garcia.
== END 2020-12-05 16:00 | DRG 177 ==
LOC: COL.ER 15:01 → MEDICAL 15:30 → ICU 15:30 → MEDICAL 15:30 → ICU 11-26 11:37 → MEDICAL 11-29 15:46
PROVIDERS: Emergency Medicine; Family Medicine; Internal Medicine Pulmonary Disease; Nurse Practitioner Family; Student in an Organized Health Care Education/Training Program; ADMIT Internal Medicine
PROC: 02HV33Z Insertion of Infusion Device into Superior Vena Cava, Percutaneous Approach (ICD-10-PCS; 2020-11-29)
PROC: XW033E5 Introduction of Remdesivir Anti-infective into Peripheral Vein, Percutaneous Approach, New Technology Group 5 (ICD-10-PCS; principal; 2020-12-01)
DX: U07.1 COVID-19 (principal); J96.01 Acute respiratory failure with hypoxia; K92.1 Melena; Z87.891 Personal history of nicotine dependence; N18.30 Chronic kidney disease, stage 3 unspecified; D63.8 Anemia in other chronic diseases classified elsewhere; E78.5 Hyperlipidemia, unspecified; N40.0 Benign prostatic hyperplasia without lower urinary tract symptoms; I12.9 Hypertensive chronic kidney disease with stage 1 through stage 4 chronic kidney disease, or unspecified chronic kidney disease; I25.2 Old myocardial infarction
CPT/HCPCS: OP; 99233-AI; 99239; C1751; G0378; J0692; J1644; J1756; J2270; J8540

== ENCOUNTER 2021-02-21 08:01 | Day surgery (SDC) | payer MEDICARE, MEDICAID ==
[~2021-02-21] VITALS: Ht 186.7 cm; Wt 80.3 kg
[~2021-02-21 08:01] MED LIST changes: +HEPARIN SOD5000 U/ML SQ; +ROBITUSSIN100 MG/5 M PO; +RT Albuterol HFA MDI IH; +TYLENOL 325MG325 MG PO
[2021-02-21 08:51] VITALS: BP 167/89; PULSE 61; TEMP 97.3
--- NOTE | 2021-02-21 09:04 | NUR ---
Patient states did not take any medications today. States my takes care of all of that.
[2021-02-21 10:20] VITALS: BP 114/73; PULSE 81
--- NOTE | 2021-02-21 10:20 | NUR ---
Patient returns to bay 4 per cart and transfers to recliner with one person assist. IV fluids infusing and site is free of redness. Given coffee, applesauce, and juice. Denies pain or nausea.
[2021-02-21 10:35] VITALS: BP 128/86; PULSE 71
--- NOTE | 2021-02-21 10:35 | NUR ---
Spouse here in the room. Tolerates snack and fluids.
--- NOTE | 2021-02-21 10:50 | NUR ---
Dr. Goddard in the room and all questions answered. Patient and spouse verbalize understanding of these.
--- NOTE | 2021-02-21 11:06 | NUR ---
IV discontinued and site is free of redness. Given dismissal instructions and voices understanding of these.
--- NOTE | 2021-02-21 11:43 | NUR ---
Patient dismissed to home driven by taxi service accompanied by spouse. Dismissal instructions in hand.
[2021-04-09] MEDS ORDERED: PROAIR HFA0.09 MG/AC IH (10:23)
[2021-04-09] MEDS ORDERED: NORVASC2.5 MG PO (10:24)
[2021-04-09] MEDS ORDERED: PROTONIX 40MG T40 MG PO (10:25)
[2021-04-09] MEDS ORDERED: FLONASEALLERGY NS (10:25)
[2021-04-09] MEDS ORDERED: TOPROL XL100 MG PO (10:25)
[2021-04-09] MEDS ORDERED: DESYREL 50MG50 MG PO (10:26)
[2021-04-09] MEDS ORDERED: SYSTANE 0.4%-0.1 SOL OP (10:26)
[2021-04-09] MEDS ORDERED: FLOMAX 0.40.4 MG/CAP PO (10:26)
== END 2021-02-21 11:47 | disposition home or self-care (01) ==
LOC: SDCO 08:01
DX: D37.4 Neoplasm of uncertain behavior of colon (principal); D12.2 Benign neoplasm of ascending colon; K57.30 Diverticulosis of large intestine without perforation or abscess without bleeding; K64.1 Second degree hemorrhoids; I12.9 Hypertensive chronic kidney disease with stage 1 through stage 4 chronic kidney disease, or unspecified chronic kidney disease; N18.9 Chronic kidney disease, unspecified; D63.1 Anemia in chronic kidney disease; E78.5 Hyperlipidemia, unspecified; J96.11 Chronic respiratory failure with hypoxia; N40.0 Benign prostatic hyperplasia without lower urinary tract symptoms; Z86.16 Personal history of COVID-19; Z99.81 Dependence on supplemental oxygen; Z79.899 Other long term (current) drug therapy; Z85.528 Personal history of other malignant neoplasm of kidney; Z87.19 Personal history of other diseases of the digestive system
CPT/HCPCS: J2704; J7030

== ENCOUNTER → 2021-02-23 | Outpatient (CLI) | payer MEDICARE, MEDICAID ==
[~2021-02-23] MED LIST changes: +DESYREL 50MG50 MG PO; +FLONASEALLERGY NS; +NORVASC2.5 MG PO; +SYSTANE 0.4%-0.1 SOL OP; +TOPROL XL100 MG PO
== END ==
LOC: COL.RAD 10:59
DX: C66.1 Malignant neoplasm of right ureter (principal); Z90.5 Acquired absence of kidney

== ENCOUNTER 2021-04-18 09:00 | Outpatient (RCR) | payer MEDICARE, MEDICAID ==
[2021-04-09 10:29] VITALS: BP 138/77; PULSE 76; TEMP 97.5
[2021-04-11 09:18] VITALS: BP 145/92; PULSE 69; TEMP 97.8
[2021-04-13 14:35] VITALS: BP 160/91; PULSE 76; TEMP 98.3
[2021-04-16 13:35] VITALS: BP 138/82; PULSE 69; TEMP 97.8
[~2021-04-18] VITALS: Ht 188 cm; Wt 86.3 kg
[2021-04-18 08:52] VITALS: BP 162/80; PULSE 69; TEMP 98.3
== END 2021-04-18 10:10 | disposition home or self-care (01) ==
LOC: EUO 09:00
DX: D50.8 Other iron deficiency anemias (principal)
CPT/HCPCS: J1756

== ENCOUNTER 2021-08-31 11:15 | Outpatient (RCR) | payer MEDICARE, MEDICAID | END 2021-09-01 | disposition home or self-care (01) | LOC: WSPT | DX: M75.42 Impingement syndrome of left shoulder (principal) ==

== ENCOUNTER → 2021-09-03 | Outpatient (CLI) | payer MEDICARE, MEDICAID | LOC: MC.RAD 10:40 | DX: N63.41 Unspecified lump in right breast, subareolar (principal); N64.89 Other specified disorders of breast ==

== ENCOUNTER 2021-09-24 13:30 | Outpatient (RCR) | payer MEDICARE, MEDICAID | END 2021-10-02 | disposition home or self-care (01) | LOC: WSPT | DX: M75.42 Impingement syndrome of left shoulder (principal) ==

== ENCOUNTER 2022-01-11 09:38 | Day surgery (SDC) | payer MEDICARE, MEDICAID ==
[2022-01-11] VITALS (8 sets, daily range): BP systolic 112–190; BP diastolic 35–113; PULSE 50–110; TEMP 97–98.1
[~2022-01-11] VITALS: Ht 185.4 cm; Wt 75.9 kg
[2022-01-11 11:49] LABS: TRICYCLIC ANTIDEPRESS URINE NEGATIVE
[2022-01-11] MEDS ORDERED: ROXICODONE 55 MG/TAB PO (12:24)
--- NOTE | 2022-01-11 13:01 | NUR ---
1250 - IV started by Lorrie OSORIO in R FA w/ 20G nexiva. PT was then taken to PACU; PO medications administered.
[2022-01-11 16:03] LABS: BASO % 0.3 % (0.0-2.0); EOS % 0.4 % (0.0-4.0); GRAN # 6.1 K/mm3 (1.4-6.5); GRAN % 85.5 % (42.2-75.2); HEMATOCRIT 47.5 % (42.0-52.0); HEMOGLOBIN 15.5 g/dl (13.5-18.0); LYMPH # 0.9 K/mm3 (1.2-3.4); LYMPH % 11.9 % (20.0-51.0); MEAN CELL VOLUME 87 fl (80.0-100.0); MEAN CORPUSCULAR HEMOGLOBIN 29 pg (27-31); MEAN CORPUSCULAR HGB CONC 33 g/dl (33.0-37.0); MEAN PLATELET VOLUME 10.5 fl (7.4-10.4); MONO # 0.1 K/mm3 (0.1-0.6); MONO % 1.8 % (1.7-9.3); PLATELET COUNT 210 K/mm3 (130-400); RED BLOOD COUNT 5.44 M/mm3 (4.20-5.60); REDCELL DISTRIBUTION WIDTH-CV 14.4 % (11.5-14.5)
[2022-01-11 16:18] LABS: ALBUMIN 4.2 gm/dL (3.4-4.8); BILIRUBIN,TOTAL 0.9 mg/dL (0.2-1.2); CALCIUM 9.8 mg/dL (8.4-10.2); CREATININE, serum 1.45 mg/dL (0.72-1.25); POTASSIUM 4.5 mmol/L (3.5-4.5); TOTAL PROTEIN 8.1 gm/dL (6.2-8.1)
[2022-01-11] MEDS ORDERED: PERCOCET 325 MG1 TA2 PO (17:03)
--- NOTE | 2022-01-11 20:53 | NUR ---
PT A&OX4 RESTING IN BED. ASSESSMENT COMPLETE AND MEDS GIVEN. PT DENIES PN. INT TO LF. RIGHT CHEST INCISION CDI. NO NEEDS AT THIS TIME. CALL LIGHT WITHIN REACH.
[2022-01-12 03:50] VITALS: BP 155/87; PULSE 72; TEMP 98.2
[2022-01-12 06:40] LABS: BASO % 0.1 % (0.0-2.0); GRAN # 8.6 K/mm3 (1.4-6.5); GRAN % 87.3 % (42.2-75.2); HEMOGLOBIN 13.8 g/dl (13.5-18.0); LYMPH # 0.8 K/mm3 (1.2-3.4); LYMPH % 8.3 % (20.0-51.0); MEAN CELL VOLUME 87 fl (80.0-100.0); MEAN CORPUSCULAR HEMOGLOBIN 29 pg (27-31); MEAN CORPUSCULAR HGB CONC 33 g/dl (33.0-37.0); MONO # 0.4 K/mm3 (0.1-0.6); MONO % 3.9 % (1.7-9.3); PLATELET COUNT 185 K/mm3 (130-400); RED BLOOD COUNT 4.85 M/mm3 (4.20-5.60); REDCELL DISTRIBUTION WIDTH-CV 14.5 % (11.5-14.5)
[2022-01-12 07:12] LABS: CALCIUM 9.1 mg/dL (8.4-10.2); CREATININE, serum 1.53 mg/dL (0.72-1.25); POTASSIUM 4.4 mmol/L (3.5-4.5)
[2022-01-12 08:00] VITALS: BP 154/63; PULSE 61; TEMP 98
--- NOTE | 2022-01-12 10:23 | NUR ---
SW met with patient to complete intake. Patient states that he lives in [facility] with Antony Irene [phone]. Patient does not utilize DME, is independent with ADL's and does not utilize HH services at this time. Patient states his PCP is Dr. Smith, and pharmacy is [facility]. Patient provides that his has been appointed as DPOA/HC. Patient plans to return to his home up on DC. SW will continue to follow. DC plan: home
--- NOTE | 2022-01-12 11:12 | NUR ---
PATIENT ALERT AND ORIENTED X4. VSS. PATIENT DENIES PAIN AT THIS TIME. SURGICAL SITE WITH NO DRESSING, EDGES WELL APPROXIMATED. PATIENT IN BED WITH CALL LIGHT NEAR.
[2022-01-12 12:00] VITALS: BP 155/70; PULSE 69; TEMP 98.1
--- NOTE | 2022-01-12 13:12 | NUR ---
Blueprint Tracer rounds: Blueprint Tracer visit attempted. Patient declined. Going home today. No blast furnace auxiliaries supervisor visit completed.
[2022-01-12] MEDS ORDERED: NORVASC 10MG10 MG PO (13:16)
--- NOTE | 2022-01-12 13:29 | NUR ---
DISCHARGE INSTRUCTIONS PROVIDED. PATIENT EDUCATION GIVEN. FOLLOW UP APPOINTMENTS AND MEDICATIONS DISCUSSED. PATIENT DENIES ANY QUESTIONS. IV DC'D. PATIENT ESCORTED OUT VIA WHEELCHAIR.
== END 2022-01-12 13:30 | disposition home or self-care (01) ==
LOC: SDCO 09:38 → SURG 15:14 → SDCO 01-12 13:30
PROVIDERS: Physician Assistant; Surgery
DX: F55.8 Abuse of other non-psychoactive substances (principal); I97.3 Postprocedural hypertension; R00.1 Bradycardia, unspecified; D64.9 Anemia, unspecified; I12.9 Hypertensive chronic kidney disease with stage 1 through stage 4 chronic kidney disease, or unspecified chronic kidney disease; N18.30 Chronic kidney disease, stage 3 unspecified; Z86.16 Personal history of COVID-19; K21.9 Gastro-esophageal reflux disease without esophagitis; E44.0 Moderate protein-calorie malnutrition; Z68.22 Body mass index [BMI] 22.0-22.9, adult; E78.5 Hyperlipidemia, unspecified; N40.0 Benign prostatic hyperplasia without lower urinary tract symptoms; Z79.899 Other long term (current) drug therapy; Z87.19 Personal history of other diseases of the digestive system; Z90.5 Acquired absence of kidney; Z85.528 Personal history of other malignant neoplasm of kidney; Z87.891 Personal history of nicotine dependence
CPT/HCPCS: OP; J0360; J0690; J1100; J2250; J2405; J2704; J2795; J3010; J7120

== ENCOUNTER 2022-03-01 11:56 | Emergency (ER) | payer OTHER, MEDICARE, MEDICAID ==
[~2022-03-01] VITALS: Ht 185.4 cm; Wt 78.2 kg
[~2022-03-01 11:56] MED LIST changes: +PERCOCET 325 MG1 TA2 PO; +ROXICODONE 55 MG/TAB PO
[2022-03-01 11:59] VITALS: TEMP 98.7
[2022-03-01] MEDS ORDERED: NORCO 325 MG-51 TAB PO (12:45)
[2022-03-01] MEDS ORDERED: LIDODERM 5% PATC1 EA TP (12:45)
[2022-03-01 13:01] VITALS: BP 154/83; PULSE 63
== END 2022-03-01 13:01 | disposition home or self-care (01) ==
LOC: COL.ER 11:56
DX: S20.212A Contusion of left front wall of thorax, initial encounter (principal); Z87.891 Personal history of nicotine dependence; Z86.16 Personal history of COVID-19; Z88.5 Allergy status to narcotic agent; V43.52XA Car driver injured in collision with other type car in traffic accident, initial encounter; Y92.410 Unspecified street and highway as the place of occurrence of the external cause

== ENCOUNTER 2022-07-03 08:53 | Outpatient (RCR) | payer MEDICARE ==
[~2022-07-03 08:53] MED LIST changes: +LIDODERM 5% PATC1 EA TP; +NORCO 325 MG-51 TAB PO
== END 2022-08-02 | disposition home or self-care (01) ==
LOC: PT.GENESIS
DX: R20.2 Paresthesia of skin (principal)

== ENCOUNTER 2022-08-29 10:45 | Outpatient (RCR) | payer MEDICARE | END 2022-09-01 | disposition home or self-care (01) | LOC: PT.GENESIS | DX: R20.2 Paresthesia of skin (principal) ==

== ENCOUNTER → 2023-05-27 | Outpatient (CLI) | payer MEDICARE | LOC: COL.RAD 10:22 | DX: Z12.2 Encounter for screening for malignant neoplasm of respiratory organs (principal); Z87.891 Personal history of nicotine dependence ==